=== PATIENT | female | born 1960 | race Caucasian/White ===

== ENCOUNTER → 2017-04-30 | Outpatient (CLI) | payer OTHER ==
[~2017-04-30] MED LIST: ASPCH81X PO; CLB/200 PO; CYAN100020 PO; FLUO20CA34 PO; HYDR12.55 PO; LEVO1TAB PO; MELO7.5T5 PO; PANT1TAB48 PO; PRLSR20 PO; SIMV40TA4 PO
[2017-04-30 12:50] LABS: ESTIMATED AVERAGE GLUCOSE 146 mg/dl; HA1C FLAG Normal (Normal)
[2017-04-30 13:00] LABS: ALT/SGPT 24 U/L (12-78); AST/SGOT 21 U/L (15-37); BLOOD UREA NITROGEN 9 mg/dl (7-18); BUN/CREATININE RATIO 12.1 (10-20); CALCIUM 8.3 mg/dl (8.5-10.1); CARBON DIOXIDE 32 mmol/L (21-32); CHLORIDE 110 mmol/L (98-107); CREATININE 0.74 mg/dl (0.60-1.20); GLUCOSE 134 mg/dl (70-99); SODIUM 144 mmol/L (136-145)
[2017-04-30 13:03] LABS: ALB/GLOB RATIO 0.8 (0.9-2); ALKALINE PHOSPHATASE 89 U/L (45-117); CHOLESTEROL 177 mg/dl (0-200); CHOLESTEROL/HDL RATIO 4.2; HDL CHOLESTEROL 42 mg/dl; LDL CHOLESTEROL CALCULATED 99 mg/dl; TRIGLYCERIDES 180 mg/dl (0-150); VERY LOW DENSITY LIPOPROT CALC 36 mg/dl
== END | disposition home or self-care (01) ==
LOC: C.LABBFT 08:07
PROVIDERS: ATTEND Nurse Practitioner
DX: E11.9 Type 2 diabetes mellitus without complications (principal); E53.8 Deficiency of other specified B group vitamins

== ENCOUNTER → 2017-04-30 | Outpatient (CLI) | payer OTHER ==
--- NOTE | 2017-05-01 08:25 | MAMMOGRAPHY REPORT ---
BILATERAL DIGITAL SCREENING MAMMOGRAM WITH CAD: 04/30/2017 CLINICAL HISTORY: Routine screening. Patient has no complaints. TECHNIQUE: Bilateral CC and MLO views were obtained. Current study was also evaluated with a Compute r Aided Detection (CAD) system. COMPARISON: Comparison is made to exams dated: 04/29/2016 mammogram, 04/28/2015 mammogram, 03/16/2014 ma mmogram, 11/14/2010 mammogram - [facility], 11/11/2008, and 11/13/2009 mammogram - [facility]. BREAST COMPOSITION: The tissue of both breasts is almost entirely fatty. FINDINGS: No suspicious mass, architectural distortion or cluster of microcalcifications is seen. IMPRESSION: ACR BI-RADS CATEGORY 1: NEGATIVE There is no mammographic evidence of malignancy. A 1 year screening mammogram is recommended. The pa tient will receive written notification of the results. Approximately 10% of breast cancers are not detected with mammography. A negative mammographic report should not delay biopsy if a clinically suggestive mass is present. Tuyet Mcnair M.D. ay/:04/30/2017 11:13:15 Electrocardiogram Technician: Lesvia Alejo RT(R)(M), [facility] letter sent: Normal /2 BI-RADS Code: ACR BI-RADS Category 1: Negative
== END | disposition home or self-care (01) ==
LOC: C.MAMM 08:57
PROVIDERS: ATTEND Obstetrics & Gynecology
DX: Z12.31 Encounter for screening mammogram for malignant neoplasm of breast (principal)

== ENCOUNTER → 2017-07-09 | Outpatient (CLI) | payer OTHER ==
[~2017-07-09] MED LIST changes: -CLB/200 PO; -PANT1TAB48 PO
[2017-07-09 17:31] LABS: URINE APPEARANCE CLEAR (CLEAR); URINE BILIRUBIN NEG (NEG); URINE COLOR YELLOW; URINE NITRITE NEG (NEG); URINE PH 5.5 (4.5-7.5); URINE SPECIFIC GRAVITY 1.019 (1.000-1.030); UROBILINOGEN NEG (NEG)
[2017-07-09 17:39] LABS: MANUAL MICROSCOPIC REQUIRED? NO; REVIEW REQ? NO
[2017-07-09 19:09] LABS: COMPLETE YES; EOSINOPHIL % 1.8 %; HEMATOCRIT 41.8 % (37-47); LYMPH ABS # 2.67 K/uL (1.2-3.4); LYMPHOCYTE % 27.2 %; MEAN CELL VOLUME 91.3 fL (80-100); MEAN CORPUSCULAR HEMOGLOBIN 29.7 pg (25-34); MEAN CORPUSCULAR HGB CONC 32.5 g/dl (32-36); MEAN PLATELET VOLUME 9.6 fL (7.4-10.4); NEUTROPHILS % 46.4 %; PLATELET COUNT 322 K/uL (130-400); RED BLOOD COUNT 4.58 M/uL (4.2-5.4); VARIANT LYM ABS # 2.24 K/uL; VARIANT LYMPHOCYTE % 22.8 %; WHITE BLOOD COUNT 9.82 K/uL (4.8-10.8)
== END | disposition home or self-care (01) ==
LOC: C.LAB1850 16:08
PROVIDERS: ATTEND Obstetrics & Gynecology
DX: Z01.818 Encounter for other preprocedural examination (principal)

== ENCOUNTER → 2017-07-09 | Outpatient (CLI) | payer OTHER | END | disposition home or self-care (01) | LOC: C.CPL 16:41 | PROVIDERS: ATTEND Obstetrics & Gynecology | DX: Z01.818 Encounter for other preprocedural examination (principal) ==

== ENCOUNTER 2017-07-18 05:24 | Day surgery (SDC) | payer OTHER ==
[2017-07-01 15:45] VITALS: BMI 52.0
[~2017-07-18] VITALS: Ht 160 cm; Wt 135.0 kg
[2017-07-18] MEDS ORDERED: LACTATED RINGER'S 1000ML 1,000 ML IV SCH ×2 (06:00)
[2017-07-18 06:04] VITALS: BP 181/106; PULSE 82; TEMP 36.7; O2SAT 96; Ht 160 cm; Wt 135.0 kg
[2017-07-18] MEDS ORDERED: PROPOFOL IV EMULSION 10 MG/ML 20 ML VIAL IV ONE (06:13)
[2017-07-18] MEDS ORDERED: DEXAMETHASONE SOD INJ 4 MG/ML VIAL ONE (06:13)
[2017-07-18] MEDS ORDERED: ONDANSETRON INJ 2 MG/ML 2 ML VIAL ONE (06:13)
[2017-07-18] MEDS ORDERED: FENTANYL CITRATE INJ 50 MCG/1 ML 2 ML VIAL ONE (06:13)
[2017-07-18] MEDS ORDERED: MIDAZOLAM HCL 1 MG/ML 2ML VIAL ONE (06:13)
[2017-07-18] MEDS ORDERED: LIDOCAINE HCL 2% 2 ML VIAL (20MG/ML) ONE (06:13)
[2017-07-18] MEDS ORDERED: SUCCINYLCHOLINE CHLORIDE 20 MG/ML 10 ML VIAL IV ONE (06:32)
[2017-07-18] MEDS ORDERED: ROCURONIUM BROMIDE 10 MG/ML 5 ML VIAL IV ONE (06:32)
[2017-07-18] MEDS ORDERED: FENTANYL CITRATE INJ 50 MCG/1 ML 2 ML VIAL IV PRN (07:00)
[2017-07-18] MEDS ORDERED: ATROPINE SULFATE 0.1 MG/ML 5ML SYR IV PRN (07:00)
[2017-07-18] MEDS ORDERED: EpHEDrine SULFATE INJ 50 MG/ML AMP IV PRN (07:00)
[2017-07-18] MEDS ORDERED: ONDANSETRON INJ 2 MG/ML 2 ML VIAL IV PRN ×2 (07:00→09:00)
--- NOTE | 2017-07-18 07:25 | History & Physical Bridge Note ---
H&P Re-Evaluation Bridge Note: I have examined the patient, reviewed the History & Physical and in the interval since the performance of the History & Physical I have noted the following changes of clinical significance: No changes noted
[2017-07-18] MEDS ORDERED: GLYCOPYRROLATE INJ 0.2 MG/ML VIAL ONE (08:02)
[2017-07-18] MEDS ORDERED: PHENYLEPHRINE 100MCG/ML 5ML SYR ONE (08:03)
[2017-07-18] MEDS ORDERED: EpHEDrine SULFATE 50MG/5ML SYR ONE (08:03)
[2017-07-18] MEDS ORDERED: SODIUM CHLORIDE 0.9% 1000ML 1,000 ML IV SCH (08:56)
--- NOTE | 2017-07-18 08:59 | [facility] Post Operative Brief Note ---
Immediate Operative Summary Operative Date Jul 18, 2017. Pre-Operative Diagnosis Postmenopausal bleeding Post-Operative Diagnosis Postmenopausal bleeding Procedure(s) Performed Hysteroscopy, Dilation and Currettage, removal of cervix polyp Surgeon Dr. Issa Sander Operator Surgeon(s) none Estimated Blood Loss 10 cc Findings Bilateral tubal ostia visualized, minimal amount of endometrial tissue, cervix polyp. Specimens A: Endometrial currettings Drains bladder drained prior to procedure Anesthesia general Complication(s) None Disposition Recovery Room / PACU
[2017-07-18] MEDS ORDERED: PROMETHAZINE HCL INJ 25 MG in SODIUM CHLORIDE 0.9% 50ML 50 ML IV PRN (09:00)
[2017-07-18] MEDS ORDERED: KETOROLAC TROMETHAMINE 30 MG/ML VIAL IV. PRN (09:00)
[2017-07-18] MEDS ORDERED: OXYCODONE/ACETAMINOPHEN 5-325 TAB PO PRN ×2 (09:00)
--- NOTE | 2017-07-18 09:04 | Medical Student: [facility] ---
Immediate Operative Summary Operative Date Jul 18, 2017. Pre-Operative Diagnosis postmenopausal bleeding Post-Operative Diagnosis same Procedure(s) Performed dilatation and curettage with hysteroscopy, cervical polyp removal Surgeon Dr. Issa [employer] Professional Surgeon(s) none Estimated Blood Loss 10 ml Findings cervical polyp. tubal ostia were visualized bilaterally. endometrial tissue. Specimens endometrial curettings Drains bladder drained prior to procedure Anesthesia general Complication(s) None Disposition Recovery Room / PACU
--- NOTE | 2017-07-18 09:08 | Discharge Instructions ---
Discharge Instructions Date of Service Jul 18, 2017. Visit Reason for Visit: Post-Menopausal Bleeding Discharge Discharge Diagnosis / Problem: postmenopausal bleeding, cervical polyp Discharge Goals Goal(s): Diagnostic testing, Therapeutic intervention Activity Recommendations Activity Limitations: per Instructions/Follow-up section Anesthesia . Post Anesthesia Instructions: If you have had General Anesthesia or IV Sedation: * Do not drive today. * Resume driving when surgeon permits. * Do not make important decisions or sign legal documents today. * Call surgeon for: 1. Temperature elevations greater than 101 degrees F. 2. Uncontrollable pain. 3. Excessive bleeding. 4. Persistent nausea and vomiting. 5. Medication intolerance (nausea, vomiting or rash). * For nausea and vomiting use only clear liquids such as: tea, soda, bouillon until nausea subsides, then gradually increase diet as tolerated. * If you have any concerns or questions, call your surgeon's office. If physician is unavailable and it is an emergency, call 911 or go to the nearest emergency room. . Instructions / Follow-Up Instructions / Follow-Up ACTIVITY RECOMMENDATIONS: * Avoid tampons, douching, hot tubs, pools, and intercourse until bleeding has stopped. * May shower as usual. * No strenuous activity for 24-48 hours. After 24-48 hours, you may do anything you feel like doing (driving and sports are okay). SPECIAL CARE INSTRUCTIONS: Special Diet: * Mild nausea may occur in the immediate post-operative period. * Take clear liquids such as tea, cola or bouillon until all nausea has subsided; you may then resume your normal diet. Special Care: * Light bleeding and vaginal spotting can last from a few days to 3-4 weeks. Call your doctor if bleeding becomes heavier than the heaviest part of your period. * Check your temperature twice a day for one week. If it goes above 100.4 degrees Fahrenheit (38.0 Celsius), notify your doctor. * Call your doctor's office for an appointment for 6 weeks after your surgery. FOLLOW-UP VISIT: Call your doctor's office for an appointment for 6 weeks after your surgery. Diet Recommendations Recommended Home Diet: resume previous diet Procedures Procedures Performed: Hysteroscopy, Dilation and Currettage, removal of cervix polyp Pending Studies Studies pending at discharge: yes List of pending studies: pathology Medical Emergencies . Who to Call and When: Medical Emergencies: If at any time you feel your situation is an emergency, please call 911 immediately. . Non-Emergent Contact Non-Emergency issues call your: Primary Care Provider, Verifying Specialist . . "Provider Documentation" section prepared by Lori Issa. .
[2017-07-18] MEDS ORDERED: LABETALOL HCL IV 5 MG/ML 20ML IV ONE (09:19)
[2017-07-18 09:40] VITALS: BP 138/83; PULSE 85; TEMP 36.6; O2SAT 94
--- NOTE | 2017-07-18 09:49 | OPERATIVE REPORT ---
DATE OF OPERATION: 07/18/2017 PREOPERATIVE DIAGNOSIS: Postmenopausal bleeding. POSTOPERATIVE DIAGNOSIS: Same. PROCEDURES PERFORMED: Hysteroscopy, dilation and curettage and removal of cervix polyp. SURGEON: Dr. Lori Issa. AROMATHERAPIST: None. ESTIMATED BLOOD LOSS: 10 mL. FINDINGS: Bilateral tubal ostia visualized, minimal amount of endometrial tissue and cervix polyp. SPECIMENS: Endometrial curettings. DRAINS: Bladder drained prior to procedure. ANESTHESIA: General. COMPLICATIONS: None. DISPOSITION: Stable and good to recovery room. INDICATIONS FOR PROCEDURE: The patient is a 56-year-old who had presented with postmenopausal bleeding and a cervical polyp on ultrasound. DESCRIPTION OF PROCEDURE: The patient was seen in the preoperative holding area where risks, benefits, alternatives to surgery were reviewed. She elected to proceed with the case. She had previously signed informed consent in the office under no duress. She was then taken to the operating room where general anesthesia was introduced. She was placed in the dorsal lithotomy position with feet in Yellofin stirrups. A weighted speculum was placed in the vagina. Cervix was visualized and the anterior lip was grasped with a single tooth tenaculum. The cervix was then gently dilated to admit the hysteroscope. The hysteroscope was then inserted. The cavity was viewed and the above noted findings were seen. The MyoSure scope was then inserted and the cervical polyp was removed with the MyoSure device. This was then removed and then gentle curettage was undertaken with a sharp curette. All specimens were sent to pathology for further evaluation. All instruments were removed from the vagina. Excellent hemostasis was observed. The patient was awoken from anesthesia and taken to recovery room in stable and good condition. I attest to the content of the Intraoperative Record and any orders documented therein. Any exception s are noted below.
[2017-07-18 10:10] VITALS: BP 141/83; PULSE 84; TEMP 36.6; O2SAT 94
--- NOTE | 2017-07-18 11:57 | Anesthesiology Progress Note ---
Anesthesia Post Op Note Date & Time Jul 18, 2017 at 11:57 Vital Signs Pain Intensity: 0 Vital Signs Past 12 Hours Date Time Temp Pulse Resp B/P (MAP) Pulse Ox O2 Delivery O2 Flow Rate FiO2 07/18/17 10:10 36.6 84 17 141/83 94 Room Air 07/18/17 09:40 36.6 85 17 138/83 94 Room Air 10 07/18/17 09:30 36.6 86 20 128/90 94 Room Air 07/18/17 09:20 100 17 138/94 96 Room Air 07/18/17 09:10 97 18 129/92 98 Oxymask 10 07/18/17 09:00 101 18 155/99 99 Oxymask 10 07/18/17 08:53 36.0 111 17 169/129 95 Oxymask 10 07/18/17 06:04 36.7 82 20 181/106 (131) 96 Room Air Notes Mental Status: alert / awake / arousable, participated in evaluation Pt Amnestic to Procedure: Yes Nausea / Vomiting: adequately controlled Pain: adequately controlled Airway Patency, RR, SpO2: stable & adequate BP & HR: stable & adequate Hydration State: stable & adequate Anesthetic Complications: no major complications apparent
== END 2017-07-18 10:39 | disposition home or self-care (01) ==
LOC: C.ACU 05:24
PROVIDERS: ATTEND Obstetrics & Gynecology
DX: N95.0 Postmenopausal bleeding (principal); N84.1 Polyp of cervix uteri; K21.9 Gastro-esophageal reflux disease without esophagitis; M19.90 Unspecified osteoarthritis, unspecified site; F32.9 Major depressive disorder, single episode, unspecified; E11.9 Type 2 diabetes mellitus without complications; I10 Essential (primary) hypertension; E03.9 Hypothyroidism, unspecified; Z86.010 Personal history of colon polyps; Z79.82 Long term (current) use of aspirin; E66.01 Morbid (severe) obesity due to excess calories; Z83.3 Family history of diabetes mellitus; Z82.49 Family history of ischemic heart disease and other diseases of the circulatory system

== ENCOUNTER → 2017-08-25 | Outpatient (CLI) | payer OTHER | END | disposition home or self-care (01) | LOC: C.PAPS 09:07 | PROVIDERS: ATTEND Obstetrics & Gynecology | DX: Z12.4 Encounter for screening for malignant neoplasm of cervix (principal); Z78.0 Asymptomatic menopausal state ==

== ENCOUNTER → 2017-10-28 | Outpatient (CLI) | payer OTHER ==
[2017-10-28 13:14] LABS: ESTIMATED AVERAGE GLUCOSE 131 mg/dl; HA1C FLAG Normal (Normal)
[2017-10-28 13:17] LABS: ALB/GLOB RATIO 0.7 (0.9-2); ALKALINE PHOSPHATASE 82 U/L (45-117); ALT/SGPT 21 U/L (12-78); AST/SGOT 15 U/L (15-37); BLOOD UREA NITROGEN 11 mg/dl (7-18); BUN/CREATININE RATIO 13.4 (10-20); CALCIUM 8.6 mg/dl (8.5-10.1); CARBON DIOXIDE 27 mmol/L (21-32); CHLORIDE 106 mmol/L (98-107); GLUCOSE 112 mg/dl (70-99); HDL CHOLESTEROL 42 mg/dl; POTASSIUM 3.8 mmol/L (3.5-5.1); SODIUM 138 mmol/L (136-145)
[2017-10-28 13:31] LABS: CHOLESTEROL 165 mg/dl (0-200); CHOLESTEROL/HDL RATIO 3.9; LDL CHOLESTEROL CALCULATED 86 mg/dl; TRIGLYCERIDES 183 mg/dl (0-150); VERY LOW DENSITY LIPOPROT CALC 37 mg/dl
== END | disposition home or self-care (01) ==
LOC: C.LABBFT 08:09
PROVIDERS: ATTEND Nurse Practitioner
DX: E11.9 Type 2 diabetes mellitus without complications (principal); E03.9 Hypothyroidism, unspecified; E53.8 Deficiency of other specified B group vitamins; E78.00 Pure hypercholesterolemia, unspecified

== ENCOUNTER → 2018-02-11 | Outpatient (CLI) | payer OTHER ==
[2018-02-11 13:15] LABS: BLOOD UREA NITROGEN 14 mg/dl (7-18); CALCIUM 8.9 mg/dl (8.5-10.1); CARBON DIOXIDE 28 mmol/L (21-32); CREATININE 0.86 mg/dl (0.60-1.20); GLUCOSE 123 mg/dl (70-99); POTASSIUM 3.5 mmol/L (3.5-5.1); SODIUM 139 mmol/L (136-145)
== END | disposition home or self-care (01) ==
LOC: C.LABBFT 08:03
PROVIDERS: ATTEND Internal Medicine
DX: I10 Essential (primary) hypertension (principal)

== ENCOUNTER → 2018-03-03 | Outpatient (CLI) | payer OTHER | END | disposition home or self-care (01) | LOC: C.RDSM 16:52 | PROVIDERS: ATTEND Family Medicine Sports Medicine | DX: M25.562 Pain in left knee (principal) ==

== ENCOUNTER → 2018-06-24 | Outpatient (CLI) | payer OTHER ==
--- NOTE | 2018-06-29 17:00 | POLYSOMNOGRAPH REPORT ---
CLINICAL DATA: A 57-year-old female with a BMI of 54.3, referred by Dr. Simmons and myself with a history of massive obesity, peripheral edema, nocturnal headaches, and loud snoring. On the evening of 06/25/2018, a home sleep apnea test was performed using a [employer] type 3 monitor. RECORDING RESULTS: Total recording time was 10 hours. The patient's monitoring time and estimated sleep time was 9.6 hours. RESPIRATORY DATA: Moderate sleep apnea was documented. The RADHA was 22.6. There were 10 obstructive, 3 mixed, and 1 central apneic episode. There were 216 hypopneic episodes. The longest respiratory event was 60 seconds. OXIMETRY DATA: Nocturnal hypoxemia was seen. Oxygen maira was 79%. Mean saturation was 93%. Time below 89% was 14 minutes. HEART RATE DATA: Heart rates ranged from 58-73 beats per minute. Loud snoring was recorded throughout the night. CERT OCCUPATIONAL THERAPY ASST'S COMMENTS: The patient stated that she had trouble with the cannula and that it kept falling off. The thermistor did not read correctly and appeared to be off. IMPRESSION: At least moderate sleep apnea/hypopnea with an RADHA of 22.6 with nocturnal hypoxemia. RECOMMENDATIONS: The patient may benefit from a repeat sleep study with CPAP or use of auto CPAP. SYLVIAD
== END | disposition home or self-care (01) ==
LOC: C.NEUR 09:11
PROVIDERS: ATTEND Internal Medicine Pulmonary Disease
DX: G47.30 Sleep apnea, unspecified (principal); E66.01 Morbid (severe) obesity due to excess calories; Z68.43 Body mass index [BMI] 50.0-59.9, adult; R09.02 Hypoxemia

== ENCOUNTER 2022-01-26 15:40 | Observation (INO) ==
[2022-01-26] MEDS ORDERED: SODIUM CHLORIDE 0.9% 500 ML IV STA (16:01)
[2022-01-26 16:11] LABS: Basophils # (auto) 0.01 K/uL (0-0.2); Basophils % (auto) 0.1 %; Eosinophils % (auto) 1.7 %; Hematocrit (blood only) 44.9 % (37-47); Immature Granulocytes # (auto) 0.04 K/uL (0.00-0.02); Immature Granulocytes % (auto) 0.3 %; Lymphocytes # (auto) 4.35 K/uL (1.2-3.4); Mean Corpuscular Hemoglobin 29.6 pg (25-34); Mean Corpuscular Hgb Conc 33.4 g/dL (32-36); Mean Corpuscular Volume 88.7 fL (80-100); Mean Platelet Volume 9.2 fL (7.4-10.4); Monocytes # (auto) 0.65 K/uL (0.11-0.59); Monocytes % (auto) 5.7 %; Neutrophils % (auto) 54.2 %; Platelet Count 329 K/uL (130-400); RDW Coefficient of Variation 14.4 % (11.5-14.5); RDW Standard Deviation 46.2 fL (36.4-46.3); Red Blood Count 5.06 M/uL (4.2-5.4); White Blood Count 11.45 K/uL (4.8-10.8)
--- NOTE | 2022-01-26 16:23 | Emergency Department Note ---
Impression & Plan Acute upper abdominal pain, Incarcerated umbilical hernia, Leukocytosis, Nausea ED Provider Note NAME: JOSE TATUM AGE: 61 SEX: F : 1960 ARRIVES VIA: Walk-In INFORMANT: [Patient] ED PROVIDER(S): [Adelfo Garcia MD] CHIEF COMPLAINT: Abdominal pain HISTORY OF PRESENT ILLNESS: The patient is a 61-year-old female presents to the ER with around 2 days of abdominal pain. The pain was lower and now is in the epigastric area. The pain is a 6/10. The pain is worse when she lays on her sides and when she walks but better when she lays flat on her back. There has been some nausea, no vomiting. She is urinating frequently but no burning with urination. No diarrhea. No cough or congestion or shortness of breath. She has not had fever but she noticed some chills last night. Patient has a known umbilical hernia which is being followed. She was told that she would need to lose weight before they could do the hernia repair. REVIEW OF SYSTEMS: See HPI for pertinent positives and negatives. A total of ten systems were revi ewed and were otherwise negative. PMHx/PSHx: See Below SOCIAL HISTORY: See Below. PHYSICAL EXAM: GENERAL: Patient is in no acute distress. HEENT: No acute trauma, normocephalic atraumatic, mucous membranes moist, no nasal congestion, no scleral icterus. NECK: No stridor, no adenopathy, no meningismus, trachea is midline. LUNGS: Clear to auscultation bilaterally, no wheeze, no rhonchi, breath sounds equal. HEART: Without murmurs gallops or rubs, regular rate and rhythm. ABDOMEN: Soft, nontender, bowel sounds positive, no peritonitis. Obese. The patient does have an umbilical hernia which is reducible and seems nontender. There seems to be a fullness/firmness to the right upper quadrant/epigastric area and this area does seem tender on exam, no erythema. EXTREMITIES: No cyanosis or edema, full range of motion of all the joints without pain or difficulty, no signs for acute trauma. NEUROLOGIC: Oriented x 3, no acute motor or sensory deficits, no focal weakness. SKIN: No rash, no jaundice, no diaphoresis. DIFFERENTIAL DIAGNOSIS: Appendicitis, ovarian cyst, ovarian torsion, diverticulitis, UTI, obstruction, mesenteric ischemia, aortic pathology, inflammatory bowel disease, renal colic, PUD, pancreatitis, biliary pathology, hernia, volvulus, constipation, as well as other pathologies. EMERGENCY DEPARTMENT COURSE/PROCEDURES: ECG: Indication was abdominal pain. The ECG shows a normal sinus rhythm with rate of 84. There is a potential old septal infarct. There is no ST elevation, no PVCs. The QTc is 491. Continuous Cardiac Monitoring: An order was placed for continuous cardiac monitoring. The monitor shows a rate of 99 with normal sinus rhythm. MEDICAL DECISION MAKING: There is a mild leukocytosis, this could be consistent with infection or her pain. There is a normal hemoglobin and platelet count. No significant electrolyte abnormality or kidney failure. Lactic acid is not elevated making bowel ischemia less likely. No concerning liver enzyme elevation. No evidence for pancreatitis. Covid testing returned negative. Abdominal and pelvis CT shows evidence for an incarcerated umbilical hernia. No true bowel obstruction. Chest x-ray did not show free air or pneumonia. On exam, the patient had a fullness just superior to her umbilicus. She was tender here. She was not toxic or febrile. The patient was given IV morphine for pain, IV Zofran for nausea. She received IV saline. I spoke with general surgery. The patient was seen here in the ED by our [facility] surgery team. Potential transfer to a tertiary care center was suggested. I spoke with the [facility] surgical physician operations architect, Dr. Jiménez. Dr. Jiménez did not feel the patient required emergent transfer to their facility. Patient is to be admitted to our facility and watched closely. If things seem to worsen or the patient is showing signs of instability, emergent transfer at that time can be considered. I spoke back with our surgical team. I spoke with case management, I talked to the on-call hospitalist. The patient is aware of her findings and the need for hospitalization. Past Med/Surg History Medical History Anxiety Depression History of anemia Morbid obesity with BMI of 50.0-59.9, adult Multiple pulmonary nodules determined by computed tomography of lung Obstructive sleep apnea (adult) (pediatric) Osteoarthritis Sleep apnea NO DEVICE Surgical History Cyst REMOVED FROM UTERUS OR OVARY? History of section History of colonoscopy History of dilation and curettage History of esophagogastroduodenoscopy (EGD) Family History Mother Hypertension Heart disease Father Heart disease Stroke Unknown Diabetes Uncle Diabetes Social History Smoking Status: Never smoker Second Hand Exposure: No; Hx Alcohol Use: No Hx Substance Use: No Preferred Language: Italian Communication Ability: Effective Other Sports Official Required: No Beliefs That Will Affect Care: None marital status: Current Living Situation: Spouse Other Information That Helps Us Care for You: No Feels Safe at Home: Yes Safety Concerns: Feels Safe At This Time Assistive Devices: None Allergies Allergies Allergy/AdvReac Type Severity Reaction Status Date / Time Penicillins Allergy Intermediate HIVES Verified 01/26/22 19:07 metformin AdvReac intolerable Verified 01/26/22 19:07 loose stools Home Meds Home Medications Medication Instructions Recorded Confirmed levothyroxine 150 mcg tablet 150 mcg PO DAILYBB 01/26/22 01/26/22 Previous Rx's Medication Instructions Recorded fluoxetine 20 mg tablet 20 mg PO HS #90 tab 12/21/20 simvastatin 40 mg tablet 40 mg PO PM #90 tab 12/21/20 hydrochlorothiazide 25 mg tablet 25 mg PO DAILY #30 tab 01/10/21 omeprazole 20 mg capsule,delayed 20 mg PO DAILY #30 cap 01/10/21 release glimepiride 2 mg tablet 2 mg PO DAILY #30 tab 09/20/21 meloxicam 15 mg tablet 15 mg PO QPM #30 tab 10/15/21 Results & Data (ED) Vital Signs Vital Signs - 24 hr 01/26/22 15:42 01/26/22 16:40 01/26/22 18:55 Temperature 36.6 C Temperature Source Temporal Artery Scan Pulse Rate 100 H Pulse Rate [Right Finger] 70 Pulse Rhythm [Right Finger] Regular Pulse Strength [Right Finger] Normal Respiratory Rate 16 18 Respiratory Effort / Characteristics Non-Labored Respiratory Depth Normal Respiratory Pattern Regular Blood Pressure 155/97 H Blood Pressure [Right Arm] 143/88 H Blood Pressure Mean 116 Blood Pressure Mean [Right Arm] 106 Blood Pressure Position [Right Arm] Lying Pulse Oximetry 96 95 Oxygen Delivery Method Room Air Room Air Room Air Sepsis Recent Fever Within 48 Hours No Sepsis New/Unexplained Change in Mental Status No Sepsis Action Taken by Nursing No Action Required Home Medications Current Medication List: was personally reviewed by me Laboratory Data Attestation: I reviewed the patient's lab results. Result diagrams: 01/26/22 15:50 01/26/22 15:50 Lab Results 01/26/22 01/26/22 01/26/22 Range/Units 15:50 15:50 15:50 WBC 11.45 H (4.8-10.8) K/uL RBC 5.06 (4.2-5.4) M/uL Hgb 15.0 (12.0-16.0) g/dL Hct 44.9 (37-47) % MCV 88.7 (80-100) fL MCH 29.6 (25-34) pg MCHC 33.4 (32-36) g/dL RDW Std Deviation 46.2 (36.4-46.3) fL RDW Coeff of Meeta 14.4 (11.5-14.5) % Plt Count 329 (130-400) K/uL MPV 9.2 (7.4-10.4) fL Immature Gran % (Auto) 0.3 % Neut % (Auto) 54.2 % Lymph % (Auto) 38.0 % Marshall % (Auto) 5.7 % Eos % (Auto) 1.7 % Baso % (Auto) 0.1 % Neut # (Auto) 6.20 (1.4-6.5) K/uL Lymph # (Auto) 4.35 H (1.2-3.4) K/uL Marshall # (Auto) 0.65 H (0.11-0.59) K/uL Eos # (Auto) 0.20 (0-0.5) K/uL Baso # (Auto) 0.01 (0-0.2) K/uL Immature Gran # (Auto) 0.04 H (0.00-0.02) K/uL Sodium 140 (136-145) mmol/L Potassium 3.5 (3.5-5.1) mmol/L Chloride 107 (98-107) mmol/L Carbon Dioxide 24 (21-32) mmol/L Anion Gap 9 (3-11) BUN 9 (6-23) mg/dl Creatinine 0.65 (0.6-1.2) mg/dl Est Cr Clr Drug Dosing 121.2 ml/min Est GFR ( Amer) 109.5 ml/min Est GFR (Non-Af Amer) 94.5 ml/min BUN/Creatinine Ratio 13.8 (10-20) Glucose 131 H (70-99(Fasting)) mg/dl Calcium 9.0 (8.5-10.1) mg/dl Magnesium 2.1 (1.7-2.4) mg/dl Total Bilirubin 0.6 (0.2-1.0) mg/dl AST 15 (13-39) U/L ALT 11 (7-52) U/L Alkaline Phosphatase 71 (34-104) U/L Total Protein 7.3 (6.0-8.3) gm/dl Albumin 3.6 (3.4-5.0) gm/dl Globulin 3.7 (2.5-4.0) gm/dl Albumin/Globulin Ratio 1.0 (0.9-2) Lipase 18 (11-82) U/L Administered Medications Insulin Aspart (Insulin Aspart Per Unit) 0 units SC ACHS NICHO Stop: 02/25/22 20:59 Last Admin: 01/26/22 21:42 Dose: Not Given Documented by: [id number] Cosigned by: [id number] Discontinued Medications Fluoxetine HCl (Fluoxetine Hcl 20 Mg Cap) 20 mg PO HS NICHO Stop: 02/25/22 20:59 Last Admin: 01/26/22 22:09 Dose: Not Given Documented by: [id number] Sodium Chloride (Nss) 500 mls @ 999 mls/hr IV .Q31M STA Stop: 01/26/22 16:31 Last Infusion: 01/26/22 17:27 Dose: 0 mls/hr Documented by: [id number] Admin: 01/26/22 16:42 Dose: 999 mls/hr Documented by: [id number] Lactated Ringer's (Lr) 1,000 mls @ 100 mls/hr IV .Q10H NICHO Stop: 02/25/22 19:14 Last Admin: 01/26/22 22:09 Dose: Not Given Documented by: [id number] Potassium Chloride (K Evert / Wtr) 10 meq in 100 mls @ 100 mls/hr IV Q1H NICHO; Protocol Stop: 03/19/22 22:29 Last Infusion: 01/26/22 21:43 Dose: 0 mls/hr Documented by: [id number] Admin: 01/26/22 20:43 Dose: 100 mls/hr Documented by: [id number] Ioversol (Optiray 320 100ml) 95 ml IV ONCE ONE Stop: 01/26/22 17:58 Last Admin: 01/26/22 17:57 Dose: 95 ml Documented by: [id number] Morphine Sulfate (Morphine Sulfate 10 Mg/Ml Carp/Vial) 6 mg IV NOW STA Stop: 01/26/22 18:20 Last Admin: 01/26/22 18:29 Dose: Not Given Documented by: [id number] Morphine Sulfate (Morphine Sulfate 4 Mg/Ml 1 Ml Carp\Vial) Confirm Administered Dose 4 mg .ROUTE .STK-MED ONE Stop: 01/26/22 18:25 Last Admin: 01/26/22 18:29 Dose: 4 mg Documented by: [id number] Morphine Sulfate (Morphine Sulfate 2 Mg/Ml Carp) Confirm Administered Dose 2 mg .ROUTE .STK-MED ONE Stop: 01/26/22 18:25 Last Admin: 01/26/22 18:29 Dose: 2 mg Documented by: [id number] Ondansetron HCl (Ondansetron Inj 2 Mg/Ml 2 Ml Vial) 4 mg IV NOW STA Stop: 01/26/22 18:20 Last Admin: 01/26/22 18:29 Dose: 4 mg Documented by: [id number] Simvastatin (Simvastatin 40 Mg Tab) 40 mg PO PM NICHO Stop: 02/25/22 20:59 Last Admin: 01/26/22 22:09 Dose: Not Given Documented by: [id number] Imaging Data Radiologist's Impression: Abdomen/Pelvis CT 01/26/22 16:01 CT OF THE ABDOMEN AND PELVIS WITH CONTRAST CLINICAL HISTORY: Mid abdominal pain. COMPARISON STUDY: CT of the abdomen and pelvis November 26, 2019. TECHNIQUE: Following IV administration of 95 mL of Optiray, axial images of the abdomen and pelvis were obtained from the lung bases to the proximal femurs. Images were reviewed in the axial, sagittal, and coronal planes. IV contrast was administered without complication. Automated exposure control was utilized for the study. A dose lowering technique was utilized adhering to the principles of ALARA. CT DOSE: 1679.15 mGy.cm FINDINGS: A 6 mm right lower lobe nodule on axial image 35 of [address] of November 26, 2019. No pneumatosis, free air or portal venous gas is present. There is hepatic steatosis. The spleen, adrenal glands, left kidney and pancreas are unremarkable. No biliary or pancreatic ductal dilatation is present. 5 mm right renal calculus is present. There are no ureteral calculi. No hydronephrosis is present. Note is again made of a large umbilical hernia which contains multiple distal small bowel loops, the ileocecal valve, cecum and ascending colon. This hernia was present on prior exam. There has been interval development of a small amount of fluid and associated stranding since prior exam. The appendix is normal. The small bowel proximal to the hernia sac is slightly dilated, measuring 2.8 cm in caliber. The small bowel within the hernia sac is decompressed. A low-grade partial small bowel obstruction would be difficult to exclude. Caliber change of the mesenteric vessels entering the hernia sac is noted. Fat-containing round densities within the pelvis are benign. No acute fracture or suspicious lesion within visual skeletal structures. Major vasculature is patent. IMPRESSION: Large umbilical hernia which contains distal small bowel loops, the cecum, appendix and ascending colon. Small amount of fluid within the hernia sac and associated fat stranding. These findings are nonspecific although raise the possibility of an incarcerated hernia and strangulation cannot be excluded by CT. No significant bowel wall thickening. Mild dilatation of the small bowel proximal to the hernia with decompressed small bowel loops within the hernia sac. A low-grade partial small bowel obstruction cannot be excluded. Close clinical follow-up is recommended. If indicated, Surgical consultation is recommended. Findings discussed with Dr. Garcia at time of dictation. ACT 112: Negative or not required by law. Electronically signed by: Iggy Hernandez M.D. 01/26/2022 6:22 PM Chest X-Ray 01/26/22 16:02 XR chest 1V portable CLINICAL HISTORY: Abdominal pain. COMPARISON STUDY: Chest CT September 27, 2021. FINDINGS: Mild elevation/eventration of the right hemidiaphragm is unchanged. Lungs are clear. There is no pneumothorax or pleural effusion. Cardiac size is normal. Mediastinal contours are normal. There is no evidence for pulmonary edema. IMPRESSION: No acute cardiopulmonary findings. ACT 112: Negative or not required by law. Electronically signed by: Iggy Hernandez M.D. 01/26/2022 4:34 PM Discharge Plan Visit Data Chief Complaint: Abdominal Pain Stated Complaint: ABDOM PAIN, NAUSEA ED Provider: Adelfo Garcia Discharge Problem: Acute upper abdominal pain, Incarcerated umbilical hernia, Leukocytosis, Nausea Patient Disposition: Admitted As Inpatient Condition: Fair Discharge Instructions Interventions: ED Discharge Assessment Last Done: 01/26/22 21:49
[2022-01-26 16:33] LABS: Albumin Level 3.6 gm/dl (3.4-5.0); BUN Creatinine Ratio 13.8 (10-20); Bilirubin,Total 0.6 mg/dl (0.2-1.0); Creatinine Clr Calc Pharmacy 121.2 ml/min; Est GFR (African American) 109.5 ml/min; Est GFR (Non-African American) 94.5 ml/min; Globulin 3.7 gm/dl (2.5-4.0); Potassium 3.5 mmol/L (3.5-5.1); Total Protein 7.3 gm/dl (6.0-8.3)
--- NOTE | 2022-01-26 16:36 | XRay Report ---
XR chest 1V portable CLINICAL HISTORY: Abdominal pain. COMPARISON STUDY: Chest CT September 27, 2021. FINDINGS: Mild elevation/eventration of the right hemidiaphragm is unchanged. Lungs are clear. There is no pneumothorax or pleural effusion. Cardiac size is normal. Mediastinal contours are normal. Ther e is no evidence for pulmonary edema. IMPRESSION: No acute cardiopulmonary findings. ACT 112: Negative or not required by law. Electronically signed by: Iggy Hernandez M.D. 01/26/2022 4:34 PM
[2022-01-26] MEDS ORDERED: OPTIRAY 320 100ml IV ONE (17:57)
[2022-01-26] MEDS ORDERED: MoRPHine SULFATE 10 MG/ML CARP/VIAL IV STA (18:19)
[2022-01-26] MEDS ORDERED: ONDANSETRON INJ 2 MG/ML 2 ML VIAL IV STA (18:19)
[2022-01-26] MEDS ORDERED: MoRPHine SULFATE 2 MG/ML CARP ONE (18:24)
[2022-01-26] MEDS ORDERED: MoRPHine SULFATE 4 MG/ML 1 ML CARP\\VIAL ONE (18:24)
--- NOTE | 2022-01-26 18:25 | CT Scan Report ---
CT OF THE ABDOMEN AND PELVIS WITH CONTRAST CLINICAL HISTORY: Mid abdominal pain. COMPARISON STUDY: CT of the abdomen and pelvis November 26, 2019. TECHNIQUE: Following IV administration of 95 mL of Optiray, axial images of the abdomen and pelvis we re obtained from the lung bases to the proximal femurs. Images were reviewed in the axial, sagittal, and coronal planes. IV contrast was administered without complication. Automated exposure control wa s utilized for the study. A dose lowering technique was utilized adhering to the principles of ALARA . CT DOSE: 1679.15 mGy.cm FINDINGS: A 6 mm right lower lobe nodule on axial image 35 of [address] of November. No pneumatosis, free air or portal venous gas is present. There is hepatic steatosis. The spl een, adrenal glands, left kidney and pancreas are unremarkable. No biliary or pancreatic ductal dilat ation is present. 5 mm right renal calculus is present. There are no ureteral calculi. No hydronephro sis is present. Note is again made of a large umbilical hernia which contains multiple distal small b owel loops, the ileocecal valve, cecum and ascending colon. This hernia was present on prior exam. Th ere has been interval development of a small amount of fluid and associated stranding since prior exa m. The appendix is normal. The small bowel proximal to the hernia sac is slightly dilated, measuring 2.8 cm in caliber. The small bowel within the hernia sac is decompressed. A low-grade partial small b owel obstruction would be difficult to exclude. Caliber change of the mesenteric vessels entering the hernia sac is noted. Fat-containing round densities within the pelvis are benign. No acute fracture or suspicious lesion within visual skeletal structures. Major vasculature is patent. IMPRESSION: Large umbilical hernia which contains distal small bowel loops, the cecum, appendix and ascending colon. Small amount of fluid within the hernia sac and associated fat stranding. These find ings are nonspecific although raise the possibility of an incarcerated hernia and strangulation canno t be excluded by CT. No significant bowel wall thickening. Mild dilatation of the small bowel proxima l to the hernia with decompressed small bowel loops within the hernia sac. A low-grade partial small bowel obstruction cannot be excluded. Close clinical follow-up is recommended. If indicated, Surgical consultation is recommended. Findings discussed with Dr. Garcia at time of dictation. ACT 112: Negative or not required by law. Electronically signed by: Iggy Hernandez M.D. 01/26/2022 6:22 PM
--- NOTE | 2022-01-26 18:59 | Surgery Consultation ---
Date of Consultation January 26, 2022 Assessment & Plan (1) Morbid obesity with BMI of 50.0-59.9, adult: (2) Umbilical hernia, incarcerated: Has had an incarcerated hernia containing bowel for many years (never reduces) but now with increased pain and stranding in the hernia sac suggestive of impending strangulation. She is still able to tolerate partial reduction but as soon as she moves, the hernia refills. Given her BMI, we discussed the likelihood of recurrence after repair is very high. We reviewed that if the bowel strangulates, this can be life threatening. I would recommend surgical repair - she is requesting to see if she can go to [place] as she had seen the hernia center there in the past. If unable to be transferred, she is not sure that she wants surgery yet. Option of keeping overnight for observation given, understanding that this is higher risk with potential of bowel strangulation/ sepsis. If pain worsens, would again recommend OR for repair. If improves overnight, could followup with hernia center. Await decision on transfer - discussed with Dr. Garcia History of Present Illness Reason for Consultation: abdominal pain in hernia Requesting Physician: Adelfo Garcia MD History of Present Illness 61 yr old morbidly obese woman with BMI of 51 and known umbilical hernia for many years now with increasing pain in the hernia. Has seen Dr. Ledezma who sent her to the hernia center in [place]. Seen there and advised to lose weight. She was able to lose some but than put it back on. In the last few days, has had increasing pain in the hernia, worse if she moves on her side, better if lying on her back. No nausea or vomiting. No change in bowel habits. No fevers or chills. Pain is currently mild but increases to moderate intensity with movement. Allergies Allergy/AdvReac Type Severity Reaction Status Date / Time Penicillins Allergy Intermediate HIVES Verified 10/22/21 09:46 metformin AdvReac intolerable Verified 10/22/21 09:46 loose stools Home Medications Medication Instructions Recorded Confirmed Type fluoxetine 20 mg tablet 20 mg PO HS #90 tab 12/21/20 10/22/21 Rx simvastatin 40 mg tablet 40 mg PO PM #90 tab 12/21/20 10/22/21 Rx hydrochlorothiazide 25 mg tablet 25 mg PO DAILY #30 tab 01/10/21 10/22/21 Rx omeprazole 20 mg capsule,delayed 20 mg PO DAILY #30 cap 01/10/21 10/22/21 Rx release CPAP Machine See Rx Instructions .ROUTE 01/24/21 10/22/21 Rx .COMPLEX #1 ea levothyroxine 150 mcg tablet 150 mcg PO DAILY #30 tab 04/02/21 10/22/21 Rx glimepiride 2 mg tablet 2 mg PO DAILY #30 tab 09/20/21 10/22/21 Rx meloxicam 15 mg tablet 15 mg PO QPM #30 tab 10/15/21 10/22/21 Rx sulfamethoxazole 800 1 tab PO BID 10 Days #20 tab 11/13/21 Rx mg-trimethoprim 160 mg tablet Patient History Medical History Anxiety Depression History of anemia Morbid obesity with BMI of 50.0-59.9, adult Multiple pulmonary nodules determined by computed tomography of lung Obstructive sleep apnea (adult) (pediatric) Osteoarthritis Sleep apnea NO DEVICE Surgical History Cyst REMOVED FROM UTERUS OR OVARY? 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 marital status: Current Living Situation: Family Feels Safe at Home: Yes Assistive Devices: None Physical Exam Constitutional: + morbidly obese; no acute distress Respiratory: normal respiratory effort, lungs clear to auscultation Cardiovascular: Rate/Rhythm: regular rate and regular rhythm Gastrointestinal (Abdomen): morbidly obese pannus, large (8 cm) umbilical hernia with thinning of the skin, not tense; able to partially reduce but not fully, mild tenderness while attempting to reduce Neurologic: awake; no focal motor deficits Results & Data ([facility]) Vital Signs (Past 12 Hours) Vital Signs Temp Pulse Resp BP Pulse Ox 01/26/22 15:42 36.6 C 100 H 16 155/97 H 96 Laboratory Results Abnormal lab results 01/26/22 01/26/22 Range/Units 15:50 15:50 WBC 11.45 H (4.8-10.8) K/uL Lymph # (Auto) 4.35 H (1.2-3.4) K/uL [place] # (Auto) 0.65 H (0.11-0.59) K/uL Immature Gran # (Auto) 0.04 H (0.00-0.02) K/uL Glucose 131 H (70-99(Fasting)) mg/dl Diagnostic Findings I personally reviewed the films CT OF THE ABDOMEN AND PELVIS WITH CONTRAST CLINICAL HISTORY: Mid abdominal pain. COMPARISON STUDY: CT of the abdomen and pelvis November 26, 2019. TECHNIQUE: Following IV administration of 95 mL of Optiray, axial images of the abdomen and pelvis were obtained from the lung bases to the proximal femurs. Images were reviewed in the axial, sagittal, and coronal planes. IV contrast was administered without complication. Automated exposure control was utilized for the study. A dose lowering technique was utilized adhering to the principles of ALARA. CT DOSE: 1679.15 mGy.cm FINDINGS: A 6 mm right lower lobe nodule on axial image 35 of [address] of November 26, 2019. No pneumatosis, free air or portal venous gas is present. There is hepatic steatosis. The spleen, adrenal glands, left kidney and pancreas are unremarkable. No biliary or pancreatic ductal dilatation is present. 5 mm right renal calculus is present. There are no ureteral calculi. No hydronephrosis is present. Note is again made of a large umbilical hernia which contains multiple distal small bowel loops, the ileocecal valve, cecum and ascending colon. This hernia was present on prior exam. There has been interval development of a small amount of fluid and associated stranding since prior exam. The appendix is normal. The small bowel proximal to the hernia sac is slightly dilated, measuring 2.8 cm in caliber. The small bowel within the hernia sac is decompressed. A low-grade partial small bowel obstruction would be difficult to exclude. Caliber change of the mesenteric vessels entering the hernia sac is noted. Fat-containing round densities within the pelvis are benign. No acute fracture or suspicious lesion within visual skeletal structures. Major vasculature is patent. IMPRESSION: Large umbilical hernia which contains distal small bowel loops, the cecum, appendix and ascending colon. Small amount of fluid within the hernia sac and associated fat stranding. These findings are nonspecific although raise the possibility of an incarcerated hernia and strangulation cannot be excluded by CT. No significant bowel wall thickening. Mild dilatation of the small bowel proximal to the hernia with decompressed small bowel loops within the hernia sac. A low-grade partial small bowel obstruction cannot be excluded. Close clinical follow-up is recommended. If indicated, Surgical consultation is recommended. Findings discussed with Dr. Garcia at time of dictation.
[2022-01-26] MEDS ORDERED: MoRPHine SULFATE 2 MG/ML CARP IV PRN (19:14)
[2022-01-26] MEDS ORDERED: LACTATED RINGER'S 1,000 ML IV SCH (19:15)
--- NOTE | 2022-01-26 19:41 | History & Physical Report ---
Date of Service January 26, 2022 Assessment & Plan (1) Umbilical hernia, incarcerated: Plan: -Hernia been present for many years, has never been reducible, increased pain today with stranding suggestive of impending strangulation. -Surgical consult in ED, Dr. Mendieta evaluated patient and is recommending surgery, however patient is not sure she wants to pursue this route. Current plan is to admit for observation overnight, plan for OR if pain worsens. If improves overnight, could follow-up with hernia center. -Cefepime 2g Q8h. -NPO. -LRs at 100cc/hr with K riders. -Morphine prn for pain management, zofran prn for nausea. (2) Metabolic syndrome: Plan: -BMI 53.9. -Continue simvastatin 40 mg daily. -Currently on glimepiride 2 mg daily, will discontinue this and start patient on sliding scale insulin. -Accu-Cheks achs. (3) Hypertension: Plan: -Continue HCTZ 25 mg daily. (4) Hypothyroidism: Plan: -Continue levothyroxine 150 mcg daily. (5) Acid reflux: Plan: -Continue PPI daily. Plan: -Admit to [facility]. -SCDs, Lovenox for DVT prophylaxis. -Full code. History of Present Illness Chief Complaint: Incarcerated umbilical hernia Primary Care Provider: Nura Simmons MD Patient is a 61-year-old female with a past medical history of hypertension, hypothyroidism, hyperlipidemia, diabetes type 2, GERD, and depression who presents today with increased pain of known umbilical hernia. Hernia has been present for several years, never reducible, she has previously seen Dr. Ledezma who sent her to the hernia center in [place], who advised patient would need to lose weight before they performed operation on her. Her the past few days, she has had some increased pain at the site of her hernia, it is alleviated with lying flat, exacerbated with movement. She denies fever/chills, weakness, nausea, vomiting, diarrhea, constipation, chest pain, palpitations, shortness of breath. Surgical consult was placed, Dr. Mendieta evaluated patient and is recommending surgery, however patient is not sure she wants to pursue this route. Current plan is to admit for observation overnight, plan for OR if pain worsens. If improves overnight, could follow-up with hernia center. Allergies Allergy/AdvReac Type Severity Reaction Status Date / Time Penicillins Allergy Intermediate HIVES Verified 01/26/22 19:07 metformin AdvReac intolerable Verified 01/26/22 19:07 loose stools Home Medications Medication Instructions Recorded Confirmed Type fluoxetine 20 mg tablet 20 mg PO HS #90 tab 12/21/20 01/26/22 Rx simvastatin 40 mg tablet 40 mg PO PM #90 tab 12/21/20 01/26/22 Rx hydrochlorothiazide 25 mg tablet 25 mg PO DAILY #30 tab 01/10/21 01/26/22 Rx omeprazole 20 mg capsule,delayed 20 mg PO DAILY #30 cap 01/10/21 01/26/22 Rx release glimepiride 2 mg tablet 2 mg PO DAILY #30 tab 09/20/21 01/26/22 Rx meloxicam 15 mg tablet 15 mg PO QPM #30 tab 10/15/21 01/26/22 Rx levothyroxine 150 mcg tablet 150 mcg PO DAILYBB 01/26/22 01/26/22 History Past Med/Surg History Medical History Anxiety Depression History of anemia Morbid obesity with BMI of 50.0-59.9, adult Multiple pulmonary nodules determined by computed tomography of lung Obstructive sleep apnea (adult) (pediatric) Osteoarthritis Sleep apnea NO DEVICE Surgical History Cyst REMOVED FROM UTERUS OR OVARY? 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 Beliefs That Will Affect Care: None marital status: Current Living Situation: Spouse Other Information That Helps Us Care for You: No Feels Safe at Home: Yes Safety Concerns: Feels Safe At This Time Assistive Devices: None Review of Systems Review of Systems: Constitutional: No fever, sweats or chills Eyes: No diplopia, no worsening or blurred vision ENT: normal hearing, no trouble swallowing Respiratory: No cough, sputum, dyspnea at rest or on exertion Cardiovascular: No chest pain, tightness or palpitations Abdomen: Increased pain at site of umbilical hernia, worse with movement better with rest and lying supine; no pain, nausea, vomiting, diarrhea or constipation Musculoskeletal: No joint pain, calf pain, swelling Neurologic: No weakness, numbness/tingling, or balance problems Psychiatric: No anxiety or depression Skin: No rash or itch Physical Exam Physical Exam: General: awake, alert, no apparent distress Head: Normocephalic, atraumatic ENT: PERRL, EOMI, no pharyngeal exudate, mucous membranes moist Chest: Clear to auscultation, on room air, no adventitious breath sounds Cardiac: Regular rate and rhythm, no murmur, no JVD, normal peripheral pulses, good capillary refill Abdominal: Umbilical hernia present partially reducible however refilled with movement; NABS x 4 quadrants, soft, nontender to palpation, no rebound, guarding or tenderness Extremities: Normal inspection, no peripheral edema or erythema, calfs nontender to palpation Psych: Normal mood and affect Neuro: AAO x 3, strength intact bilaterally and rated 5/5, no motor deficits, speech is clear, no peripheral sensory deficits Skin: no rash or erythema Results & Data Results & Data ([facility]) Vital Signs (Past 12 Hours) Vital Signs Temp Pulse Pulse Resp BP BP Pulse Ox 01/26/22 18:55 70 18 143/88 H 95 01/26/22 15:42 36.6 C 100 H 16 155/97 H 96 Laboratory Results Abnormal lab results 01/26/22 01/26/22 Range/Units 15:50 15:50 WBC 11.45 H (4.8-10.8) K/uL Lymph # (Auto) 4.35 H (1.2-3.4) K/uL [place] # (Auto) 0.65 H (0.11-0.59) K/uL Immature Gran # (Auto) 0.04 H (0.00-0.02) K/uL Glucose 131 H (70-99(Fasting)) mg/dl Diagnostic Findings Abdomen/Pelvis CT 01/26/22 16:01 CT OF THE ABDOMEN AND PELVIS WITH CONTRAST CLINICAL HISTORY: Mid abdominal pain. COMPARISON STUDY: CT of the abdomen and pelvis November 26, 2019. TECHNIQUE: Following IV administration of 95 mL of Optiray, axial images of the abdomen and pelvis were obtained from the lung bases to the proximal femurs. Images were reviewed in the axial, sagittal, and coronal planes. IV contrast was administered without complication. Automated exposure control was utilized for the study. A dose lowering technique was utilized adhering to the principles of ALARA. CT DOSE: 1679.15 mGy.cm FINDINGS: A 6 mm right lower lobe nodule on axial image 35 of [address] of November 26, 2019. No pneumatosis, free air or portal venous gas is present. There is hepatic steatosis. The spleen, adrenal glands, left kidney and pancreas are unremarkable. No biliary or pancreatic ductal dilatation is present. 5 mm right renal calculus is present. There are no ureteral calculi. No hydronephrosis is present. Note is again made of a large umbilical hernia which contains multiple distal small bowel loops, the ileocecal valve, cecum and ascending colon. This hernia was present on prior exam. There has been interval development of a small amount of fluid and associated stranding since prior exam. The appendix is normal. The small bowel proximal to the hernia sac is slightly dilated, measuring 2.8 cm in caliber. The small bowel within the hernia sac is decompressed. A low-grade partial small bowel obstruction would be difficult to exclude. Caliber change of the mesenteric vessels entering the hernia sac is noted. Fat-containing round densities within the pelvis are benign. No acute fracture or suspicious lesion within visual skeletal structures. Major vasculature is patent. IMPRESSION: Large umbilical hernia which contains distal small bowel loops, the cecum, appendix and ascending colon. Small amount of fluid within the hernia sac and associated fat stranding. These findings are nonspecific although raise the possibility of an incarcerated hernia and strangulation cannot be excluded by CT. No significant bowel wall thickening. Mild dilatation of the small bowel proximal to the hernia with decompressed small bowel loops within the hernia sac. A low-grade partial small bowel obstruction cannot be excluded. Close clinical follow-up is recommended. If indicated, Surgical consultation is recommended. Findings discussed with Dr. Garcia at time of dictation. ACT 112: Negative or not required by law. Electronically signed by: Iggy Hernandez M.D. 01/26/2022 6:22 PM Chest X-Ray 01/26/22 16:02 XR chest 1V portable CLINICAL HISTORY: Abdominal pain. COMPARISON STUDY: Chest CT September 27, 2021. FINDINGS: Mild elevation/eventration of the right hemidiaphragm is unchanged. Lungs are clear. There is no pneumothorax or pleural effusion. Cardiac size is normal. Mediastinal contours are normal. There is no evidence for pulmonary edema. IMPRESSION: No acute cardiopulmonary findings. ACT 112: Negative or not required by law. Electronically signed by: Iggy Hernandez M.D. 01/26/2022 4:34 PM ECG Additional Comments: Normal sinus rhythm Septal infarct , age undetermined Abnormal ECG When compared with ECG of 09-JUL-2017 16:49, Septal infarct is now Present Code Status & VTE Plan Code Status Full Code. VTE Prophylaxis Plan VTE Prophylaxis will be ordered: Yes Supervising Physician Co-Signing Physician Notes Incarcerated hernia- Has already been assessed by general surgery Dr. Mendieta, for which patient is considering surgical treatment Admit to medical surgical for observation overnight N.p.o. except meds LR at 100 mils per hour Pain medications as noted Hypertension- Hold HCTZ Hypothyroidism- Continue levothyroxine GERD- PPI daily Remaining orders and notations as noted PG Care Time/CCT Total # of Minutes Spent Total Time Spent with Patient: Total time spent is greater than 50% in coordination of care (as documented) at patient's floor/unit and/or counseling patient: Coding Level of Care Code INT OBSERVATION CARE 70M LVL 3 Diagnoses Umbilical hernia, incarcerated K42.0 Metabolic syndrome E88.81 Hypertension I10 Hypothyroidism E03.9 Acid reflux K21.9
[2022-01-26] MEDS ORDERED: GLUCOSE 40% GEL 15 GM TUBE PO PRN (19:42)
[2022-01-26] MEDS ORDERED: DEXTROSE 50% 50 ML SYRINGE IV PRN (19:42)
[2022-01-26] MEDS ORDERED: GLUCOSE 10 TABS/TUBE PO PRN (19:42)
[2022-01-26] MEDS ORDERED: CARBOHYDRATES FOR HYPOGLYCEMIA PO PRN (19:42)
[2022-01-26] MEDS ORDERED: GLUCAGON FOR INJ 1 MG VIAL SQ PRN (19:42)
[2022-01-26] MEDS ORDERED: diphenhydrAMINE 50 MG/ML VIAL IV PRN (20:07)
[2022-01-26] MEDS ORDERED: ACETAMINOPHEN 1000 MG/100 ML IV IV PRN (20:07)
[2022-01-26] MEDS: POTASSIUM CHLORIDE / WTR 10 MEQ/100 ML PLCT IV SCH ×2 (20:43→23:49)
[2022-01-26] MEDS ORDERED: SIMVASTATIN 40 MG TAB PO SCH (21:00)
[2022-01-26] MEDS ORDERED: INSULIN ASPART PER UNIT SC SCH (21:00)
[2022-01-26] MEDS ORDERED: FLUoxetine HCL 20 MG CAP PO SCH (21:00)
[2022-01-26] MEDS: CEFEPIME 2,000 MG in SYRINGE 0 ML IV SCH (23:50)
[2022-01-26] MEDS: ENOXAPARIN INJ 40 MG/0.4 ML SYR SQ SCH (23:50)
[2022-01-27] MEDS: INSULIN ASPART PER UNIT SC SCH ×5 (00:06→21:55)
[2022-01-27] MEDS: MoRPHine SULFATE 4 MG/ML 1 ML CARP\\VIAL IV PRN ×4 (03:57→22:51)
[2022-01-27] MEDS: CEFEPIME 2,000 MG in SYRINGE 0 ML IV SCH (06:02)
[2022-01-27] MEDS ORDERED: LEVOTHYROXINE SODIUM 150 MCG TABLET PO SCH (06:30)
[2022-01-27 06:53] LABS: Basophils # (auto) 0.01 K/uL (0-0.2); Basophils % (auto) 0.1 %; Eosinophils # (auto) 0.35 K/uL (0-0.5); Eosinophils % (auto) 3.9 %; Hematocrit (blood only) 42.1 % (37-47); Hemoglobin 13.8 g/dL (12.0-16.0); Immature Granulocytes # (auto) 0.02 K/uL (0.00-0.02); Immature Granulocytes % (auto) 0.2 %; Lymphocytes # (auto) 2.93 K/uL (1.2-3.4); Mean Corpuscular Hemoglobin 29.7 pg (25-34); Mean Corpuscular Hgb Conc 32.8 g/dL (32-36); Mean Corpuscular Volume 90.5 fL (80-100); Monocytes # (auto) 0.57 K/uL (0.11-0.59); Monocytes % (auto) 6.4 %; Neutrophils # (auto) 5.01 K/uL (1.4-6.5); Neutrophils % (auto) 56.4 %; Platelet Count 306 K/uL (130-400); RDW Coefficient of Variation 14.5 % (11.5-14.5); RDW Standard Deviation 48.2 fL (36.4-46.3); Red Blood Count 4.65 M/uL (4.2-5.4); White Blood Count 8.89 K/uL (4.8-10.8)
[2022-01-27 07:10] LABS: Albumin Level 3.2 gm/dl (3.4-5.0); BUN Creatinine Ratio 15.3 (10-20); Bilirubin,Total 0.6 mg/dl (0.2-1.0); Calcium 8.5 mg/dl (8.5-10.1); Creatinine Clr Calc Pharmacy 133.5 ml/min; Est GFR (African American) 113.1 ml/min; Est GFR (Non-African American) 97.5 ml/min; Globulin 3.3 gm/dl (2.5-4.0); Magnesium 2.1 mg/dl (1.7-2.4); Potassium 3.6 mmol/L (3.5-5.1); Total Protein 6.5 gm/dl (6.0-8.3)
[2022-01-27] MEDS ORDERED: PANTOprazole 40 MG TAB PO SCH (09:00)
[2022-01-27] MEDS ORDERED: hydroCHLOROthiazide 25 MG TAB PO SCH (09:00)
[2022-01-27 09:09] LABS: Appearance Urine Clear (Clear); Bilirubin Urine Negative (Negative); Blood Urine Negative (Negative); Color Urine Yellow; Glucose Urine UA Negative (Negative); Ketones Urine 2+ (Negative); Leukocyte Esterase Urine Negative (Negative); Nitrite Urine Negative (Negative); Protein Urine Negative (Negative); Specific Gravity Urine > 1.045 (1.000-1.030); Urobilinogen Urine Negative (Negative); pH Urine 5.5 (4.5-7.5)
--- NOTE | 2022-01-27 10:26 | Electrocardiogram Report ---
Test Reason : Blood Pressure : / mmHG Vent. Rate : 084 BPM Atrial Rate : 084 BPM P-R Int : 168 ms QRS Dur : 088 ms QT Int : 416 ms P-R-T Axes : 048 -05 024 degrees QTc Int : 491 ms Normal sinus rhythm Confirmed by Nura Chow ([id number]) on 01/27/2022 10:26:06 AM Referred By: REFERRED SELF Confirmed By:Jude Chow
[2022-01-27] MEDS: ONDANSETRON INJ 2 MG/ML 2 ML VIAL IV PRN (10:32)
[2022-01-27] MEDS: ENOXAPARIN INJ 40 MG/0.4 ML SYR SQ SCH ×2 (10:32→22:52)
--- NOTE | 2022-01-27 11:41 | Hospitalist Progress Note ---
Date of Service January 27, 2022 Assessment & Plan (1) Umbilical hernia, incarcerated: Plan: - Hernia been present for many years, has never been reducible, increased pain today with stranding suggestive of impending strangulation. - Surgical consult in ED, Dr. Mendieta evaluated patient and is recommending surgery, however patient was not sure she wanted to proceed with this option. Subsequently pt admitted to medical service to observe with surgery to follow. - Pt kept NPO, provided pain control, and antiemetics - Appears that empiric abx were initiated with Cefepime, no indication for abx, will d/c - Discussed case this morning with patient and general surgery; pt was agreeable to proceed with surgical correction of her hernia, however, surgery feels that patient is too high of a risk d/t her BMI and feels that she would be better served by undergoing surgery at [facility]. However, as mentioned in HPI, [facility] does not want to take in transfer (d/t her high risk) unless she gets worse or hernia becomes strangulated. My concern with waiting to transfer once the hernia is strangulated is that time is bowel and a delay in transfer may result in ischemic or infarcted bowel and I did explain this to the patient. - At this time, surgery is recommending observing another 24 hours to ensure her pain does not get any worse, advised she may eat today - Advance diet to clear liquids for lunch, I encouraged pt to get up and out of bed, sit in chair and walk around as able - Cap IVF (2) Diabetes mellitus type 2, controlled: Plan: - Glimepiride from home on hold - Initiated sliding scale coverage with accuchecks AC and HS (3) Hypertension: Plan: - Continue HCTZ 25 mg daily. (4) Hypothyroidism: Plan: - Continue levothyroxine 150 mcg daily. (5) Acid reflux: Plan: - Continue PPI daily. (6) Morbid obesity with BMI of 50.0-59.9, adult: Plan: - Certainly encourage weight loss as this substantially increases her risks associated with anesthesia administration and post surgical complications Plan: Interventions as outlined above Plan d/w Dr. Chavarria. Admission and Anticipated Discharge Date Admission Date: January 26, 2022 Subjective Patient was seen on daily rounds this morning. She is resting comfortably in bed, reports no current complaints of abdominal. Denies n/v. She is currently NPO. Was seen by general surgery this AM, felt that she was too high of a surgical risk to perform her hernia repair here and referral to [facility] was advised, but [facility] will not take in transfer unless her pain continues/worsens. Pt understands and is agreeable with this plan. Review of Systems Review of Systems: Constitutional: No fever, sweats or chills Eyes: No diplopia, no worsening or blurred vision ENT: normal hearing, no trouble swallowing Respiratory: No cough, sputum, dyspnea at rest or on exertion Cardiovascular: No chest pain, tightness or palpitations Abdomen: Increased pain at site of umbilical hernia, worse with movement better with rest and lying supine; no pain, nausea, vomiting, diarrhea or constipation Musculoskeletal: No joint pain, calf pain, swelling Neurologic: No weakness, numbness/tingling, or balance problems Psychiatric: No anxiety or depression Skin: No rash or itch Physical Exam Physical Exam: GENERAL: Morbidly obese 61 yo WF who appears older than stated age. NAD. LUNGS: Clear to auscultation bilaterally. No accessory muscle use. No W/R/R. CARDIOVASCULAR: Regular rate and rhythm. No M/G/R. No JVD. ABDOMEN: Soft, obese, minimal periumbilical tenderness to palpation. Soft tissue mass c/w umbilical hernia present, nontender to palp directly over hernia. Bowel sounds present x 4 quad. EXTREMITIES: No edema. Non-tender. Peripheral pulses +2/4. NEUROLOGIC: A&O x3. PSYCHIATRIC: Cooperative. Appropriate mood and affect. SKIN: Warm, dry, intact. No rashes or lesions. Results & Data Results & Data ([facility]) Vital Signs (Past 12 Hours) Vital Signs Temp Pulse Resp BP Pulse Ox Pulse Ox 01/27/22 08:01 36.3 C L 83 18 117/76 99 01/26/22 23:50 95 Laboratory Results 01/27/22 06:08 01/27/22 06:08 PG Care Time/CCT Total # of Minutes Spent Total Time Spent with Patient: Total time spent is greater than 50% in coordination of care (as documented) at patient's floor/unit and/or counseling patient: Coding Level of Care Code 31112 Subseq Hosp Care Lvl 2 Diagnoses Umbilical hernia, incarcerated K42.0 Hypertension I10 Hypothyroidism E03.9 Acid reflux K21.9 Diabetes mellitus type 2, controlled E11.9 Morbid obesity with BMI of 50.0-59.9, adult E66.01; Z68.43
--- NOTE | 2022-01-27 13:33 | Surgery Progress Note ---
Date of Service January 27, 2022 Assessment & Plan (1) Morbid obesity with BMI of 50.0-59.9, adult: (2) Umbilical hernia, incarcerated: Plan: Has had an incarcerated hernia containing bowel for many years (never fully reduces) but had worsening pain and CT scan showing new fat stranding yesterday. High risk for surgery here - discussed with [facility] yesterday and they would accept her if she strangulated but otherwise feel monitoring is reasonable. There is no sign of strangulation on her exam (still partially reducible, not tense). No sign of bowel ischemia on exam and her leukocytosis has resolved. I would recommend starting a diet and monitoring for additional day. If she stays stable, can be discharged with plans for outpatient followup with [place] [facility]. If worsens, would consider transfer more urgently Admission and Anticipated Discharge Date Admission Date: January 26, 2022 Subjective She had an episode of pain last night which responded to the medications. No worsening of pain in the hernia. No obstructive symptoms (nausea/ vomiting). Essentially unchanged since yesterday. Physical Exam Constitutional: + morbidly obese; no acute distress Respiratory: normal respiratory effort, lungs clear to auscultation Cardiovascular: Rate/Rhythm: regular rate and regular rhythm Gastrointestinal (Abdomen): obese, 8 cm umbilical hernia is still partially reducible, not tense, mild tenderness. No sign of infection or worsening incarceration. Neurologic: awake; no focal motor deficits Results & Data ([facility]) Vital Signs (Past 12 Hours) Vital Signs Temp Pulse Resp BP Pulse Ox 01/27/22 08:01 36.3 C L 83 18 117/76 99 Laboratory Results Abnormal lab results 01/26/22 01/26/22 01/27/22 Range/Units 15:50 15:50 00:02 WBC 11.45 H (4.8-10.8) K/uL RDW Std Deviation (36.4-46.3) fL Lymph # (Auto) 4.35 H (1.2-3.4) K/uL [place] # (Auto) 0.65 H (0.11-0.59) K/uL Immature Gran # (Auto) 0.04 H (0.00-0.02) K/uL Chloride (98-107) mmol/L Creatinine (0.6-1.2) mg/dl Glucose 131 H (70-99(Fasting)) mg/dl POC Glucose 106 H (70-99) mg/dl Albumin (3.4-5.0) gm/dl Ur Specific Poca (1.000-1.030) Urine Ketones (Negative) 01/27/22 01/27/22 01/27/22 Range/Units 05:54 06:08 06:08 WBC (4.8-10.8) K/uL RDW Std Deviation 48.2 H (36.4-46.3) fL Lymph # (Auto) (1.2-3.4) K/uL [place] # (Auto) (0.11-0.59) K/uL Immature Gran # (Auto) (0.00-0.02) K/uL Chloride 110 H (98-107) mmol/L Creatinine 0.59 L (0.6-1.2) mg/dl Glucose 122 H (70-99(Fasting)) mg/dl POC Glucose 109 H (70-99) mg/dl Albumin 3.2 L (3.4-5.0) gm/dl Ur Specific Poca (1.000-1.030) Urine Ketones (Negative) 01/27/22 01/27/22 Range/Units 08:20 11:48 WBC (4.8-10.8) K/uL RDW Std Deviation (36.4-46.3) fL Lymph # (Auto) (1.2-3.4) K/uL [place] # (Auto) (0.11-0.59) K/uL Immature Gran # (Auto) (0.00-0.02) K/uL Chloride (98-107) mmol/L Creatinine (0.6-1.2) mg/dl Glucose (70-99(Fasting)) mg/dl POC Glucose 104 H (70-99) mg/dl Albumin (3.4-5.0) gm/dl Ur Specific P[place] > 1.045 H (1.000-1.030) Urine Ketones 2+ H (Negative)
[2022-01-28 07:17] LABS: Estimated Average Glucose 126 mg/dl
[2022-01-28 08:41] LABS: Basophils # (auto) 0.01 K/uL (0-0.2); Basophils % (auto) 0.1 %; Eosinophils # (auto) 0.44 K/uL (0-0.5); Eosinophils % (auto) 5.1 %; Hematocrit (blood only) 42.7 % (37-47); Immature Granulocytes # (auto) 0.01 K/uL (0.00-0.02); Immature Granulocytes % (auto) 0.1 %; Lymphocytes # (auto) 2.57 K/uL (1.2-3.4); Lymphocytes % (auto) 29.6 %; Mean Corpuscular Hemoglobin 29.5 pg (25-34); Mean Corpuscular Hgb Conc 32.8 g/dL (32-36); Mean Corpuscular Volume 90.1 fL (80-100); Mean Platelet Volume 9.1 fL (7.4-10.4); Monocytes # (auto) 0.65 K/uL (0.11-0.59); Monocytes % (auto) 7.5 %; Neutrophils % (auto) 57.6 %; Platelet Count 266 K/uL (130-400); RDW Coefficient of Variation 14.4 % (11.5-14.5); RDW Standard Deviation 48.1 fL (36.4-46.3); Red Blood Count 4.74 M/uL (4.2-5.4); White Blood Count 8.68 K/uL (4.8-10.8)
[2022-01-28 09:07] LABS: BUN Creatinine Ratio 18.8 (10-20); Calcium 8.7 mg/dl (8.5-10.1); Creatinine Clr Calc Pharmacy 123.1 ml/min; Est GFR (African American) 110.1 ml/min; Potassium 3.4 mmol/L (3.5-5.1)
[2022-01-28] MEDS: INSULIN ASPART PER UNIT SC SCH ×3 (09:27→18:01)
[2022-01-28] MEDS: ENOXAPARIN INJ 40 MG/0.4 ML SYR SQ SCH ×2 (10:56→23:59)
--- NOTE | 2022-01-28 13:57 | Surgery Progress Note ---
Date of Service January 28, 2022 Assessment & Plan (1) Morbid obesity with BMI of 50.0-59.9, adult: (2) Umbilical hernia, incarcerated: Plan: Has had an incarcerated hernia containing bowel for many years (never fully reduces) but had worsening pain and CT scan showing new fat stranding yesterday. High risk for surgery here - discussed with [facility] yesterday and they would accept her if she strangulated but otherwise feel monitoring is reasonable. There is no sign of strangulation on her exam (still partially reducible, not tense). No sign of bowel ischemia on exam and her leukocytosis has resolved. She will need surgical repair of this hernia given persistent pain. Dr. Brown recommends transfer to [place] or [place] for definitive repair. Discussed with medical team. Dr. Brown has seen and examined pt, agrees with above. Admission and Anticipated Discharge Date Admission Date: January 26, 2022 Subjective still having pain after eating no vomiting but sometimes feels like she has to no bowel movement but passing gas No increase in abdominal pain but not really any improvement Saw Dr. Cruz in [place] about [address] Ledezma referred her there given size of hernia and needing hernia specailist. Said they would not do her surgery given her weight and increased risk. Physical Exam Constitutional: WD/WN, vitals as above + morbidly obese; no acute distress and not ill appearing Neck: normal visual inspection and trachea midline Respiratory: normal respiratory effort; no respiratory distress, no labored breathing and no retractions Gastrointestinal (Abdomen): Inspection/Auscultation: abdomen not distended Percussion/Palpation: + abdomen tender, abdomen soft and + hernia (large umb ilical hernia with tenderness to palpation); no guarding, abdomen not rigid and abdomen not firm Skin: no rashes, warm and dry Psychiatric: Orientation: alert and oriented x 3 Results & Data ([facility]) Vital Signs (Past 12 Hours) Vital Signs Temp Pulse Resp BP Pulse Ox 01/28/22 07:10 36.9 C 81 15 122/76 91 Laboratory Results 01/28/22 01/28/22 01/28/22 Range/Units 12:26 12:15 08:26 WBC (4.8-10.8) K/uL RBC (4.2-5.4) M/uL Hgb (12.0-16.0) g/dL Hct (37-47) % MCV (80-100) fL MCH (25-34) pg MCHC (32-36) g/dL RDW Std Deviation (36.4-46.3) fL RDW Coeff of Meeta (11.5-14.5) % Plt Count (130-400) K/uL MPV (7.4-10.4) fL Immature Gran % (Auto) % Neut % (Auto) % Lymph % (Auto) % [place] % (Auto) % Eos % (Auto) % Baso % (Auto) % Neut # (Auto) (1.4-6.5) K/uL Lymph # (Auto) (1.2-3.4) K/uL [place] # (Auto) (0.11-0.59) K/uL Eos # (Auto) (0-0.5) K/uL Baso # (Auto) (0-0.2) K/uL Immature Gran # (Auto) (0.00-0.02) K/uL Sodium 139 (136-145) mmol/L Potassium 3.4 L (3.5-5.1) mmol/L Chloride 106 (98-107) mmol/L Carbon Dioxide 29 (21-32) mmol/L Anion Gap 4 (3-11) BUN 12 (6-23) mg/dl Creatinine 0.64 (0.6-1.2) mg/dl Est Cr Clr Drug Dosing 123.1 ml/min Est GFR ( Amer) 110.1 ml/min Est GFR (Non-Af Amer) 95.0 ml/min BUN/Creatinine Ratio 18.8 (10-20) Glucose 104 H (70-99(Fasting)) mg/dl POC Glucose 118 H (70-99) mg/dl Estimat Average Glucose mg/dl Hemoglobin A1c (4.5-5.6) % Lactate 0.5 (0.4-2.0) mmol/L Calcium 8.7 (8.5-10.1) mg/dl 01/28/22 01/28/22 01/27/22 Range/Units 08:26 08:16 20:54 WBC 8.68 (4.8-10.8) K/uL RBC 4.74 (4.2-5.4) M/uL Hgb 14.0 (12.0-16.0) g/dL Hct 42.7 (37-47) % MCV 90.1 (80-100) fL MCH 29.5 (25-34) pg MCHC 32.8 (32-36) g/dL RDW Std Deviation 48.1 H (36.4-46.3) fL RDW Coeff of Meeta 14.4 (11.5-14.5) % Plt Count 266 (130-400) K/uL MPV 9.1 (7.4-10.4) fL Immature Gran % (Auto) 0.1 % Neut % (Auto) 57.6 % Lymph % (Auto) 29.6 % [place] % (Auto) 7.5 % Eos % (Auto) 5.1 % Baso % (Auto) 0.1 % Neut # (Auto) 5.00 (1.4-6.5) K/uL Lymph # (Auto) 2.57 (1.2-3.4) K/uL [place] # (Auto) 0.65 H (0.11-0.59) K/uL Eos # (Auto) 0.44 (0-0.5) K/uL Baso # (Auto) 0.01 (0-0.2) K/uL Immature Gran # (Auto) 0.01 (0.00-0.02) K/uL Sodium (136-145) mmol/L Potassium (3.5-5.1) mmol/L Chloride (98-107) mmol/L Carbon Dioxide (21-32) mmol/L Anion Gap (3-11) BUN (6-23) mg/dl Creatinine (0.6-1.2) mg/dl Est Cr Clr Drug Dosing ml/min Est GFR ( Amer) ml/min Est GFR (Non-Af Amer) ml/min BUN/Creatinine Ratio (10-20) Glucose (70-99(Fasting)) mg/dl POC Glucose 98 105 H (70-99) mg/dl Estimat Average Glucose mg/dl Hemoglobin A1c (4.5-5.6) % Lactate (0.4-2.0) mmol/L Calcium (8.5-10.1) mg/dl 01/27/22 01/27/22 Range/Units 16:59 06:08 WBC (4.8-10.8) K/uL RBC (4.2-5.4) M/uL Hgb (12.0-16.0) g/dL Hct (37-47) % MCV (80-100) fL MCH (25-34) pg MCHC (32-36) g/dL RDW Std Deviation (36.4-46.3) fL RDW Coeff of Meeta (11.5-14.5) % Plt Count (130-400) K/uL MPV (7.4-10.4) fL Immature Gran % (Auto) % Neut % (Auto) % Lymph % (Auto) % [place] % (Auto) % Eos % (Auto) % Baso % (Auto) % Neut # (Auto) (1.4-6.5) K/uL Lymph # (Auto) (1.2-3.4) K/uL [place] # (Auto) (0.11-0.59) K/uL Eos # (Auto) (0-0.5) K/uL Baso # (Auto) (0-0.2) K/uL Immature Gran # (Auto) (0.00-0.02) K/uL Sodium (136-145) mmol/L Potassium (3.5-5.1) mmol/L Chloride (98-107) mmol/L Carbon Dioxide (21-32) mmol/L Anion Gap (3-11) BUN (6-23) mg/dl Creatinine (0.6-1.2) mg/dl Est Cr Clr Drug Dosing ml/min Est GFR ( Amer) ml/min Est GFR (Non-Af Amer) ml/min BUN/Creatinine Ratio (10-20) Glucose (70-99(Fasting)) mg/dl POC Glucose 99 (70-99) mg/dl Estimat Average Glucose 126 mg/dl Hemoglobin A1c 6.0 H (4.5-5.6) % Lactate (0.4-2.0) mmol/L Calcium (8.5-10.1) mg/dl
[2022-01-28] MEDS ORDERED: POTASSIUM CHLORIDE CRTAB 20 MEQ TABCR PO STA (15:14)
--- NOTE | 2022-01-28 15:20 | Hospitalist Progress Note ---
Date of Service January 28, 2022 Assessment & Plan (1) Umbilical hernia, incarcerated: Plan: - Hernia been present for many years, has never been reducible, increased pain today with stranding suggestive of impending strangulation. - Surgical consult in ED, Dr. Mendieta evaluated patient and is recommending surgery, however patient was not sure she wanted to proceed with this option. Subsequently pt admitted to medical service to observe with surgery to follow. - Pt kept NPO, provided pain control, and antiemetics - Appears that empiric abx were initiated with Cefepime, no indication for abx, will d/c - Discussed case this morning with patient and general surgery; pt was agreeable to proceed with surgical correction of her hernia, however, surgery feels that patient is too high of a risk d/t her BMI and feels that she would be better served by undergoing surgery at [facility]. However, as mentioned in HPI, [facility] does not want to take in transfer (d/t her high risk) unless she gets worse or hernia becomes strangulated. My concern with waiting to transfer once the hernia is strangulated is that time is bowel and a delay in transfer may result in ischemic or infarcted bowel and I did explain this to the patient. - At this time, surgery is recommending observing another 24 hours to ensure her pain does not get any worse, advised she may eat today - Advance diet to clear liquids for lunch, I encouraged pt to get up and out of bed, sit in chair and walk around as able - IVF capped yesterday - This morning, pt attempted regular diet and had worsening pain - I have called [facility] [place], spoke with ER physician (?unsure why surgery didn't get on the line) who felt that obtaining a lactate and repeat CT scan would aid in decision making process - Lactate WNL - CT A/P w/ IV and oral contrast is pending--to be done around 1700 this elias armendariz Will call [facility] back once results are available to discuss with them. (2) Diabetes mellitus type 2, controlled: Plan: - Glimepiride from home on hold - Initiated sliding scale coverage with accuchecks AC and HS (3) Hypertension: Plan: - Continue HCTZ 25 mg daily. (4) Hypothyroidism: Plan: - Continue levothyroxine 150 mcg daily. (5) Acid reflux: Plan: - Continue PPI daily. Plan: Repeat CT A/P pending. Will contact [facility] to discuss transfer again once results are available for review. As noted above, lactate today is within normal limits. I have returned patient back to n.p.o. status, she is allowed sips in order to take medications and ice chips. Potassium supplementation ordered for K+ of 3.4. Plan d/w Dr. Chavarria. Admission and Anticipated Discharge Date Admission Date: January 26, 2022 Subjective Pt seen on daily rounds. Her diet was advanced to clear liquids yesterday which she seemed to be tolerating relatively well. Diet advanced to regular this morning and she started eating a few bites of toast and had worsening abdominal pain. She denies fever, chills, vomiting but has had a couple occasions where she felt like she had to. She continues to pass flatus. No BM since admission. Surgery is recommending transfer to [facility] for surgical intervention as she is felt to be too high risk for surgery here. Apparently has seen Dr. Cruz in [place] about 2 years ago. Review of Systems Review of Systems: Constitutional: No fever, sweats or chills Eyes: No diplopia, no worsening or blurred vision ENT: normal hearing, no trouble swallowing Respiratory: No cough, sputum, dyspnea at rest or on exertion Cardiovascular: No chest pain, tightness or palpitations Abdomen: Increased pain at site of umbilical hernia, worse with movement better with rest and lying supine; no pain, nausea, vomiting, diarrhea or constipation Musculoskeletal: No joint pain, calf pain, swelling Neurologic: No weakness, numbness/tingling, or balance problems Psychiatric: No anxiety or depression Skin: No rash or itch Physical Exam Physical Exam: GENERAL: Morbidly obese 61 yo WF who appears older than stated age. NAD. LUNGS: Clear to auscultation bilaterally. No accessory muscle use. No W/R/R. CARDIOVASCULAR: Regular rate and rhythm. No M/G/R. No JVD. ABDOMEN: Soft, obese, minimal periumbilical tenderness to palpation. Soft umbilical mass c/w hernia present, nontender to palp directly over hernia. Bowel sounds present x 4 quad. EXTREMITIES: No edema. Non-tender. Peripheral pulses +2/4. NEUROLOGIC: A&O x3. PSYCHIATRIC: Cooperative. Appropriate mood and affect. SKIN: Warm, dry, intact. No rashes or lesions. Results & Data Results & Data ([facility]) Vital Signs (Past 12 Hours) Vital Signs Temp Pulse Pulse Resp BP Pulse Ox 01/28/22 14:41 37 C 85 16 126/73 94 01/28/22 07:10 36.9 C 81 15 122/76 91 Laboratory Results 01/28/22 08:26 01/28/22 08:26 PG Care Time/CCT Total # of Minutes Spent Total Time Spent with Patient: Total time spent is greater than 50% in coordination of care (as documented) at patient's floor/unit and/or counseling patient: Coding Level of Care Code 76891 Subseq Hosp Care Lvl 2 Diagnoses Umbilical hernia, incarcerated K42.0 Hypertension I10 Hypothyroidism E03.9 Acid reflux K21.9 Diabetes mellitus type 2, controlled E11.9
[2022-01-28] MEDS ORDERED: OPTIRAY 320 100ml IV ONE (17:38)
--- NOTE | 2022-01-28 18:19 | CT Scan Report ---
CT abd pelvis oral and IV con CLINICAL HISTORY: incarcerated umbilical hernia worsening pain TECHNIQUE: Helical axial images of the abdomen and pelvis were obtained and displayed. Automated dose lowering techniques and/or adjustment according to patient size were utilized for this exam. This e xam was performed with intravenous contrast. COMPARISON: None available at the time of this dictation. FINDINGS: Lower chest: 5 mm pulmonary nodule is seen in the right lower lobe. Liver: Unremarkable. No focal lesions are seen. Gallbladder and biliary tree: No calcified gallstones. Normal caliber wall. No intra- or extrahepatic biliary ductal dilation. Pancreas: The pancreas appears to terminate just distal to the body. Spleen: Splenule is incidentally noted. Adrenals: Unremarkable. Kidneys and ureters: Right nonobstructive stone is seen. Bladder: Limited evaluation due to underdistention. Reproductive organs: Unremarkable. Bowel: Multiple loops of bowel are seen in an umbilical hernia. There is no evidence of obstruction. No significant bowel wall thickening is seen within the hernia. Lymph nodes Retroperitoneal: Unremarkable. Mesenteric: Unremarkable. Pelvic: Unremarkable. Peritoneum: Multiple foci of fat with a soft tissue rim are seen compatible with old omental hernias. Vessels: Unremarkable. Abdominal wall: A large umbilical hernia is seen with a neck measuring 77 mm. This contains multiple loops of bowel and some fluid. Bones: Degenerative changes in the visualized spine. IMPRESSION: Multiple loops of bowel are seen within the hernia along with some fluid. No evidence of bowel wall t hickening. Of note, strangulation cannot be entirely excluded by CT. ACT 112: Negative or not required by law. Electronically signed by: Rip Daley M.D. 01/28/2022 6:17 PM
[2022-01-28] MEDS: LACTATED RINGER'S 1,000 ML IV SCH (18:42)
[2022-01-28] MEDS ORDERED: Nursing to Pharmacy Communication SCH (18:45)
[2022-01-28] MEDS: ONDANSETRON INJ 2 MG/ML 2 ML VIAL IV PRN (20:57)
[2022-01-28] MEDS: MoRPHine SULFATE 4 MG/ML 1 ML CARP\\VIAL IV PRN (20:58)
[2022-01-29] MEDS: INSULIN ASPART PER UNIT SC SCH ×4 (00:01→17:16)
[2022-01-29] MEDS: MoRPHine SULFATE 4 MG/ML 1 ML CARP\\VIAL IV PRN (03:23)
[2022-01-29] MEDS: LACTATED RINGER'S 1,000 ML IV SCH ×2 (03:26→13:23)
[2022-01-29] MEDS ORDERED: LEVOTHYROXINE SODIUM 150 MCG TABLET PO SCH (06:30)
[2022-01-29 07:55] LABS: Basophils # (auto) 0.01 K/uL (0-0.2); Basophils % (auto) 0.1 %; Eosinophils # (auto) 0.22 K/uL (0-0.5); Eosinophils % (auto) 2.3 %; Hematocrit (blood only) 41.9 % (37-47); Hemoglobin 13.7 g/dL (12.0-16.0); Immature Granulocytes # (auto) 0.02 K/uL (0.00-0.02); Immature Granulocytes % (auto) 0.2 %; Lymphocytes # (auto) 3.34 K/uL (1.2-3.4); Lymphocytes % (auto) 34.3 %; Mean Corpuscular Hemoglobin 29.5 pg (25-34); Mean Corpuscular Hgb Conc 32.7 g/dL (32-36); Mean Corpuscular Volume 90.1 fL (80-100); Mean Platelet Volume 9.2 fL (7.4-10.4); Monocytes % (auto) 6.2 %; Neutrophils # (auto) 5.55 K/uL (1.4-6.5); Neutrophils % (auto) 56.9 %; Platelet Count 300 K/uL (130-400); RDW Coefficient of Variation 14.5 % (11.5-14.5); RDW Standard Deviation 47.4 fL (36.4-46.3); Red Blood Count 4.65 M/uL (4.2-5.4); White Blood Count 9.74 K/uL (4.8-10.8)
[2022-01-29 08:14] LABS: BUN Creatinine Ratio 20.3 (10-20); Calcium 8.5 mg/dl (8.5-10.1); Creatinine Clr Calc Pharmacy 133.5 ml/min; Est GFR (African American) 113.1 ml/min; Est GFR (Non-African American) 97.5 ml/min; Potassium 3.9 mmol/L (3.5-5.1)
[2022-01-29] MEDS: ENOXAPARIN INJ 40 MG/0.4 ML SYR SQ SCH (11:19)
--- NOTE | 2022-01-29 14:47 | Discharge Summary ---
Date of Service January 29, 2022 Admission HPI Per Admitting Provider Patient is a 61-year-old female with a past medical history of hypertension, hypothyroidism, hyperlipidemia, diabetes type 2, GERD, and depression who presents today with increased pain of known umbilical hernia. Hernia has been present for several years, never reducible, she has previously seen Dr. Ledezma who sent her to the hernia center in [place], who advised patient would need to lose weight before they performed operation on her. Her the past few days, she has had some increased pain at the site of her hernia, it is alleviated with lying flat, exacerbated with movement. She denies fever/chills, weakness, nausea, vomiting, diarrhea, constipation, chest pain, palpitations, shortness of breath. Surgical consult was placed, Dr. Mendieta evaluated patient and is recommending surgery, however patient is not sure she wants to pursue this route. Current plan is to admit for observation overnight, plan for OR if pain worsens. If improves overnight, could follow-up with hernia center. Principal Diagnosis Incarcerated umbilical hernia w/o ability to exclude strangulation Discharge Exam GENERAL: Morbidly obese 61 yo WF who appears older than stated age. NAD. LUNGS: Clear to auscultation bilaterally. No accessory muscle use. No W/R/R. CARDIOVASCULAR: Regular rate and rhythm. No M/G/R. No JVD. ABDOMEN: Soft, obese, periumbilical tenderness to palpation. Soft umbilical mass c/w hernia present, nontender to palp directly over hernia. Bowel sounds present x 4 quad. EXTREMITIES: No edema. Non-tender. Peripheral pulses +2/4. NEUROLOGIC: A&O x3. PSYCHIATRIC: Cooperative. Appropriate mood and affect. SKIN: Warm, dry, intact. No rashes or lesions. Discharge Data Allergies Allergy/AdvReac Type Severity Reaction Status Date / Time Penicillins Allergy Intermediate HIVES Verified 01/26/22 19:07 metformin AdvReac intolerable Verified 01/26/22 19:07 loose stools Consultations 01/26/22 18:19 Consult General Surgery Stat 01/26/22 19:23 ED Decision to Admit Stat Ordered Studies Abdomen/Pelvis CT 01/26/22 16:01 CT OF THE ABDOMEN AND PELVIS WITH CONTRAST CLINICAL HISTORY: Mid abdominal pain. COMPARISON STUDY: CT of the abdomen and pelvis November 26, 2019. TECHNIQUE: Following IV administration of 95 mL of Optiray, axial images of the abdomen and pelvis were obtained from the lung bases to the proximal femurs. Images were reviewed in the axial, sagittal, and coronal planes. IV contrast was administered without complication. Automated exposure control was utilized for the study. A dose lowering technique was utilized adhering to the principles of ALARA. CT DOSE: 1679.15 mGy.cm FINDINGS: A 6 mm right lower lobe nodule on axial image 35 of [address] of November 26, 2019. No pneumatosis, free air or portal venous gas is present. There is hepatic steatosis. The spleen, adrenal glands, left kidney and pancreas are unremarkable. No biliary or pancreatic ductal dilatation is present. 5 mm right renal calculus is present. There are no ureteral calculi. No hydronephrosis is present. Note is again made of a large umbilical hernia which contains multiple distal small bowel loops, the ileocecal valve, cecum and ascending colon. This hernia was present on prior exam. There has been interval development of a small amount of fluid and associated stranding since prior exam. The appendix is normal. The small bowel proximal to the hernia sac is slightly dilated, measuring 2.8 cm in caliber. The small bowel within the hernia sac is decompressed. A low-grade partial small bowel obstruction would be difficult to exclude. Caliber change of the mesenteric vessels entering the hernia sac is noted. Fat-containing round densities within the pelvis are benign. No acute fracture or suspicious lesion within visual skeletal structures. Major vasculature is patent. IMPRESSION: Large umbilical hernia which contains distal small bowel loops, the cecum, appendix and ascending colon. Small amount of fluid within the hernia sac and associated fat stranding. These findings are nonspecific although raise the possibility of an incarcerated hernia and strangulation cannot be excluded by CT. No significant bowel wall thickening. Mild dilatation of the small bowel proximal to the hernia with decompressed small bowel loops within the hernia sac. A low-grade partial small bowel obstruction cannot be excluded. Close clini ramakrishna follow-up is recommended. If indicated, Surgical consultation is recommended. Findings discussed with Dr. Garcia at time of dictation. ACT 112: Negative or not required by law. Electronically signed by: Iggy Hernandez M.D. 01/26/2022 6:22 PM Chest X-Ray 01/26/22 16:02 XR chest 1V portable CLINICAL HISTORY: Abdominal pain. COMPARISON STUDY: Chest CT September 27, 2021. FINDINGS: Mild elevation/eventration of the right hemidiaphragm is unchanged. Lungs are clear. There is no pneumothorax or pleural effusion. Cardiac size is normal. Mediastinal contours are normal. There is no evidence for pulmonary edema. IMPRESSION: No acute cardiopulmonary findings. ACT 112: Negative or not required by law. Electronically signed by: Iggy Hernandez M.D. 01/26/2022 4:34 PM Abdomen/Pelvis CT 01/28/22 12:02 CT abd pelvis oral and IV con CLINICAL HISTORY: incarcerated umbilical hernia worsening pain TECHNIQUE: Helical axial images of the abdomen and pelvis were obtained and displayed. Automated dose lowering techniques and/or adjustment according to patient size were utilized for this exam. This exam was performed with intravenous contrast. COMPARISON: None available at the time of this dictation. FINDINGS: Lower chest: 5 mm pulmonary nodule is seen in the right lower lobe. Liver: Unremarkable. No focal lesions are seen. Gallbladder and biliary tree: No calcified gallstones. Normal caliber wall. No intra- or extrahepatic biliary ductal dilation. Pancreas: The pancreas appears to terminate just distal to the body. Spleen: Splenule is incidentally noted. Adrenals: Unremarkable. Kidneys and ureters: Right nonobstructive stone is seen. Bladder: Limited evaluation due to underdistention. Reproductive organs: Unremarkable. Bowel: Multiple loops of bowel are seen in an umbilical hernia. There is no evidence of obstruction. No significant bowel wall thickening is seen within the hernia. Lymph nodes Retroperitoneal: Unremarkable. Mesenteric: Unremarkable. Pelvic: Unremarkable. Peritoneum: Multiple foci of fat with a soft tissue rim are seen compatible with old omental hernias. Vessels: Unremarkable. Abdominal wall: A large umbilical hernia is seen with a neck measuring 77 mm. This contains multiple loops of bowel and some fluid. Bones: Degenerative changes in the visualized spine. IMPRESSION: Multiple loops of bowel are seen within the hernia along with some fluid. No evidence of bowel wall thickening. Of note, strangulation cannot be entirely excluded by CT. ACT 112: Negative or not required by law. Electronically signed by: Rip Daley M.D. 01/28/2022 6:17 PM 01/29/22 07:22 01/29/22 07:22 Hospital Course (1) Umbilical hernia, incarcerated: - Hernia been present for many years, has never been reducible, increased pain today with stranding suggestive of impending strangulation. - Surgical consult in ED, Dr. Mendieta evaluated patient and is recommending surgery, however patient was not sure she wanted to proceed with this option. Subsequently pt admitted to medical service to observe with surgery to follow. - Pt kept NPO, provided pain control, and antiemetics - Appears that empiric abx were initiated with Cefepime, no indication for abx and subsequently were discontinued - Discussed case this morning with patient and general surgery; pt was agreeable to proceed with surgical correction of her hernia, however, surgery feels that patient is too high of a risk d/t her BMI and feels that she would be better served by undergoing surgery at [facility]. However, as mentioned in HPI, [facility] does not want to take in transfer (d/t her high risk) unless she gets worse or hernia becomes strangulated. My concern with waiting to transfer once the hernia is strangulated is that time is bowel and a delay in transfer may result in ischemic or infarcted bowel and I did explain this to the patient. - As of 01/27, surgery recommended observing another 24 hours to ensure her pain does not get any worse, advised she may eat today and could be sent home if tolerated oral intake - Diet advanced to clear liquids for lunch on 01/27, I encouraged pt to get up and out of bed, sit in chair and walk around as able - Yesterday (01/28) AM, pt attempted regular diet and had worsening pain and was subsequently moved back to NPO status; general surgery here continued to recommend transfer. - I have called [facility], spoke with an ER physician (?unsure why surgery didn't get on the line) who felt that obtaining a lactate and repeat CT scan would aid in decision making process - Lactate yesterday and this morning drawn at request of [facility] both WNL - CT A/P w/ IV and oral contrast performed yesterday, results as outlined above, yet again could not exclude strangulation - Contacted [facility] yesterday around [address] Cruz who patient saw previously (~2 years ago), explained that patient has failed dietary advancement and repeat CT is unchanged, furthermore pt continues to have episodes of severe abdominal pain associated w/ nausea and retching. Pt was accepted in transfer pending bed availability. - Spoke with bed farm management professor around 1230 today, noted that patient does have a bed they are just waiting for the patient currently occupying it to vacate (as this pt has been discharged). Once they do, [facility] will call with bed assignment and transportation can be arranged. - Paperwork has been filled out and signed. Pt is stable for ground transport to [facility]. (2) Diabetes mellitus type 2, controlled: - Glimepiride from home on hold - Initiated sliding scale coverage with accuchecks AC and HS (3) Hypertension: - Continue HCTZ 25 mg daily. (4) Hypothyroidism: - Continue levothyroxine 150 mcg daily. (5) Acid reflux: - Continue PPI daily. At this time, pt is medically and hemodynamically stable for discharge from [facility] in order to transfer to [facility]. She is stable for ground transport. Pt has been updated on plan of care and is in agreement. Above plan of care has been d/w Dr. Chavarria who has also seen this patient today and is in agreement with the aforementioned. Total Time Total Time Spent Total Time Spent (In Minutes): >30 minutes Discharge Plan Discharge Items Patient Disposition: Transfer Acute Care Hospital Reason For Visit: INCARCERATED HERNIA Discharge Diagnosis: incarcerated umbilical hernia Condition on Discharge: Fair Activity: As commented below Activity Comment: out of bed as tolerated Non-emergency contact: Primary Care Provider and Surgeon Call non-emergency contact if: you have any medication questions and your symptoms worsen Follow-up/Referrals: Nura Simmons MD [Primary Care Provider] - Diet: Nothing by Mouth Addtl Attending Provider Instructions: Due to surgery being too high of a risk to perform here at [facility], you are being transferred to a tertiary hospital--[facility]--in order to see a general surgeon who specializes in hernia repairs. Pending Studies at Discharge: No Stand-Alone Forms: My [facility] Skilled Items Patient informed of condition?: Yes DNR: No Discharge Level of Care: Other Communicable Disease: No Discharge Prognosis: Stable Lines: Peripheral IV Urinary Catheter: No Medications and DC Order Prescriptions: Continued fluoxetine 20 mg tablet 20 mg PO HS Qty: 90 RF: 3 simvastatin 40 mg tablet 40 mg PO PM Qty: 90 RF: 3 omeprazole 20 mg capsule,delayed release(DR/EC) 20 mg PO DAILY Qty: 30 RF: 11 hydrochlorothiazide 25 mg tablet 25 mg PO DAILY Qty: 30 RF: 11 glimepiride 2 mg tablet 2 mg PO DAILY Qty: 30 RF: 11 meloxicam 15 mg tablet 15 mg PO QPM Qty: 30 RF: 11 levothyroxine 150 mcg tablet 150 mcg PO DAILYBB RF: 0 Discharge Orders: Discharge Order (Routine); Ordered 01/29/22 Ordered By: Neha Pineda/Other Patient Handouts: Hypoglycemia (Low Blood Sugar), Managing Type 2 Diabetes, Diabetes: Meal Planning Admission Data Admit Date/Time: 01/26/22 21:27 Attending Provider: Bharath Chavarria Admit Provider: Annita Mendieta Primary Care Provider: Nura Simmons Other Providers: Annita Mendieta ; Kartik Hodges Other Interventions: Discharge Summary Assessment (RN) Last Done: 01/29/22 14:44 Supervising Physician Co-Signing Physician Notes Patient is a 61-year-old female with an incarcerated umbilical hernia without strangulation as noted above. Patient has been accepted for [facility] transfer. Agree with medical transfer as documented above, and have discussed the case with MORGAN Escalante. Patient is seen at bedside prior to transfer, has mild diffuse abdominal tenderness overlying her hernia without severe pain, no guarding, no rigidity, no rebound tenderness. No questions or concerns, other than what time her transfers at. Coding Level of Care Code D/C DAY MANAGEMENT >30 MINS Diagnoses Umbilical hernia, incarcerated K42.0 Diabetes mellitus type 2, controlled E11.9 Hypertension I10 Hypothyroidism E03.9 Acid reflux K21.9
--- NOTE | 2022-01-29 15:13 | Surgery Progress Note ---
Date of Service January 29, 2022 Patient seen around 10:00 this am during rounds Assessment & Plan (1) Morbid obesity with BMI of 50.0-59.9, adult: (2) Umbilical hernia, incarcerated: Plan: 61 year old morbidly obese female with BMI of 53 with longstanding history of umbilical hernia containing bowel for years. Recent increase in abdominal pain specifically with oral intake. CT scan upon admission showed some stranding which was new compared to baseline however no evidence of bowel obstruction. She failed advancement of diet. Awaiting possible transfer to [place]. Repeat CT scan of abdomen and pelvis showed no evidence of bowel obstruction or signs of strangulation. Lactic acid normal. Normal wbc. Plan: Although there are no signs of obstruction or strangulation of hernia, given her increasing pain with any oral intake she needs definitive repair of this hernia. She needs hernia specialist given size of hernia and her BMI. Discussed options of close outpatient follow-up with [facility] hernia specialist if able to advance diet. She will likely need to loose weight preoperatively if done electively. Plan to attempt to advance diet and she how she tolerates. Dr. Brown was present during my examination and agrees with above. addendum: Discussed plan with hospitalist admitting service at 10:30 am who stated [place] accepted patient in transfer and waiting for bed. States she was vomit ing last evening after CT scan and has failed diet advancement now twice. She likely needs repair of hernia now instead of waiting to schedule as outpatient/elective procedure. Agree with the need for transfer. Admission and Anticipated Discharge Date Admission Date: January 26, 2022 Subjective states she is not having as much pain today so far but has not had anything to eat or drink since the CT scan last evening. Had nausea last evening after oral contrast with dry heaves. No persistent vomiting per patient. She failed advancement of diet twice already. Passing gas but no bowel movement Physical Exam Constitutional: WD/WN, vitals as above + morbidly obese; no acute distress and not ill appearing Respiratory: normal respiratory effort; no respiratory distress and no labored breathing Gastrointestinal (Abdomen): Inspection/Auscultation: + visible herniation; abdomen not distended Percussion/Palpation: + abdomen tender (at umbilicus and to right of umbilicus) and + hernia (large umbilical hernia containing bowel, not reducible on exam) Skin: no rashes, warm and dry Psychiatric: Orientation: alert and oriented x 3 Results & Data ([facility]) Vital Signs (Past 12 Hours) Vital Signs Temp Pulse Resp BP Pulse Ox 01/29/22 15:01 36.7 C 86 18 140/88 90 01/29/22 07:46 36.8 C 86 16 104/70 92 Laboratory Results 01/29/22 01/29/22 01/29/22 Range/Units 11:56 07:26 07:22 WBC (4.8-10.8) K/uL RBC (4.2-5.4) M/uL Hgb (12.0-16.0) g/dL Hct (37-47) % MCV (80-100) fL MCH (25-34) pg MCHC (32-36) g/dL RDW Std Deviation (36.4-46.3) fL RDW Coeff of Meeta (11.5-14.5) % Plt Count (130-400) K/uL MPV (7.4-10.4) fL Immature Gran % (Auto) % Neut % (Auto) % Lymph % (Auto) % Beadle % (Auto) % Eos % (Auto) % Baso % (Auto) % Neut # (Auto) (1.4-6.5) K/uL Lymph # (Auto) (1.2-3.4) K/uL Beadle # (Auto) (0.11-0.59) K/uL Eos # (Auto) (0-0.5) K/uL Baso # (Auto) (0-0.2) K/uL Immature Gran # (Auto) (0.00-0.02) K/uL Sodium 138 (136-145) mmol/L Potassium 3.9 (3.5-5.1) mmol/L Chloride 107 (98-107) mmol/L Carbon Dioxide 25 (21-32) mmol/L Anion Gap 6 (3-11) BUN 12 (6-23) mg/dl Creatinine 0.59 L (0.6-1.2) mg/dl Est Cr Clr Drug Dosing 133.5 ml/min Est GFR ( Amer) 113.1 ml/min Est GFR (Non-Af Amer) 97.5 ml/min BUN/Creatinine Ratio 20.3 H (10-20) Glucose 97 (70-99(Fasting)) mg/dl POC Glucose 87 (70-99) mg/dl Lactate 0.5 (0.4-2.0) mmol/L Calcium 8.5 (8.5-10.1) mg/dl Hepatitis C Ab Screen (Neg) 01/29/22 01/29/22 01/28/22 Range/Units 07:22 06:16 23:57 WBC 9.74 (4.8-10.8) K/uL RBC 4.65 (4.2-5.4) M/uL Hgb 13.7 (12.0-16.0) g/dL Hct 41.9 (37-47) % MCV 90.1 (80-100) fL MCH 29.5 (25-34) pg MCHC 32.7 (32-36) g/dL RDW Std Deviation 47.4 H (36.4-46.3) fL RDW Coeff of Meeta 14.5 (11.5-14.5) % Plt Count 300 (130-400) K/uL MPV 9.2 (7.4-10.4) fL Immature Gran % (Auto) 0.2 % Neut % (Auto) 56.9 % Lymph % (Auto) 34.3 % Beadle % (Auto) 6.2 % Eos % (Auto) 2.3 % Baso % (Auto) 0.1 % Neut # (Auto) 5.55 (1.4-6.5) K/uL Lymph # (Auto) 3.34 (1.2-3.4) K/uL Beadle # (Auto) 0.60 H (0.11-0.59) K/uL Eos # (Auto) 0.22 (0-0.5) K/uL Baso # (Auto) 0.01 (0-0.2) K/uL Immature Gran # (Auto) 0.02 (0.00-0.02) K/uL Sodium (136-145) mmol/L Potassium (3.5-5.1) mmol/L Chloride (98-107) mmol/L Carbon Dioxide (21-32) mmol/L Anion Gap (3-11) BUN (6-23) mg/dl Creatinine (0.6-1.2) mg/dl Est Cr Clr Drug Dosing ml/min Est GFR ( Amer) ml/min Est GFR (Non-Af Amer) ml/min BUN/Creatinine Ratio (10-20) Glucose (70-99(Fasting)) mg/dl POC Glucose 95 117 H (70-99) mg/dl Lactate (0.4-2.0) mmol/L Calcium (8.5-10.1) mg/dl Hepatitis C Ab Screen (Neg) 01/28/22 01/28/22 01/28/22 Range/Units 20:48 18:18 17:13 WBC (4.8-10.8) K/uL RBC (4.2-5.4) M/uL Hgb (12.0-16.0) g/dL Hct (37-47) % MCV (80-100) fL MCH (25-34) pg MCHC (32-36) g/dL RDW Std Deviation (36.4-46.3) fL RDW Coeff of Meeta (11.5-14.5) % Plt Count (130-400) K/uL MPV (7.4-10.4) fL Immature Gran % (Auto) % Neut % (Auto) % Lymph % (Auto) % Beadle % (Auto) % Eos % (Auto) % Baso % (Auto) % Neut # (Auto) (1.4-6.5) K/uL Lymph # (Auto) (1.2-3.4) K/uL Beadle # (Auto) (0.11-0.59) K/uL Eos # (Auto) (0-0.5) K/uL Baso # (Auto) (0-0.2) K/uL Immature Gran # (Auto) (0.00-0.02) K/uL Sodium (136-145) mmol/L Potassium (3.5-5.1) mmol/L Chloride (98-107) mmol/L Carbon Dioxide (21-32) mmol/L Anion Gap (3-11) BUN (6-23) mg/dl Creatinine (0.6-1.2) mg/dl Est Cr Clr Drug Dosing ml/min Est GFR ( Amer) ml/min Est GFR (Non-Af Amer) ml/min BUN/Creatinine Ratio (10-20) Glucose (70-99(Fasting)) mg/dl POC Glucose 98 111 H (70-99) mg/dl Lactate 0.8 (0.4-2.0) mmol/L Calcium (8.5-10.1) mg/dl Hepatitis C Ab Screen (Neg) 01/27/22 Range/Units 06:08 WBC (4.8-10.8) K/uL RBC (4.2-5.4) M/uL Hgb (12.0-16.0) g/dL Hct (37-47) % MCV (80-100) fL MCH (25-34) pg MCHC (32-36) g/dL RDW Std Deviation (36.4-46.3) fL RDW Coeff of Meeta (11.5-14.5) % Plt Count (130-400) K/uL MPV (7.4-10.4) fL Immature Gran % (Auto) % Neut % (Auto) % Lymph % (Auto) % Beadle % (Auto) % Eos % (Auto) % Baso % (Auto) % Neut # (Auto) (1.4-6.5) K/uL Lymph # (Auto) (1.2-3.4) K/uL Beadle # (Auto) (0.11-0.59) K/uL Eos # (Auto) (0-0.5) K/uL Baso # (Auto) (0-0.2) K/uL Immature Gran # (Auto) (0.00-0.02) K/uL Sodium (136-145) mmol/L Potassium (3.5-5.1) mmol/L Chloride (98-107) mmol/L Carbon Dioxide (21-32) mmol/L Anion Gap (3-11) BUN (6-23) mg/dl Creatinine (0.6-1.2) mg/dl Est Cr Clr Drug Dosing ml/min Est GFR ( Amer) ml/min Est GFR (Non-Af Amer) ml/min BUN/Creatinine Ratio (10-20) Glucose (70-99(Fasting)) mg/dl POC Glucose (70-99) mg/dl Lactate (0.4-2.0) mmol/L Calcium (8.5-10.1) mg/dl Hepatitis C Ab Screen Pos A (Neg) Diagnostic Findings CT abd pelvis oral and IV con CLINICAL HISTORY: incarcerated umbilical hernia worsening pain TECHNIQUE: Helical axial images of the abdomen and pelvis were obtained and displayed. Automated dose lowering techniques and/or adjustment according to patient size were utilized for this exam. This exam was performed with intravenous contrast. COMPARISON: None available at the time of this dictation. FINDINGS: Lower chest: 5 mm pulmonary nodule is seen in the right lower lobe. Liver: Unremarkable. No focal lesions are seen. Gallbladder and biliary tree: No calcified gallstones. Normal caliber wall. No intra- or extrahepatic biliary ductal dilation. Pancreas: The pancreas appears to terminate just distal to the body. Spleen: Splenule is incidentally noted. Adrenals: Unremarkable. Kidneys and ureters: Right nonobstructive stone is seen. Bladder: Limited evaluation due to underdistention. Reproductive organs: Unremarkable. Bowel: Multiple loops of bowel are seen in an umbilical hernia. There is no evidence of obstruction. No significant bowel wall thickening is seen within the hernia. Lymph nodes Retroperitoneal: Unremarkable. Mesenteric: Unremarkable. Pelvic: Unremarkable. Peritoneum: Multiple foci of fat with a soft tissue rim are seen compatible with old omental hernias. Vessels: Unremarkable. Abdominal wall: A large umbilical hernia is seen with a neck measuring 77 mm. This contains multiple loops of bowel and some fluid. Bones: Degenerative changes in the visualized spine. IMPRESSION: Multiple loops of bowel are seen within the hernia along with some fluid. No evidence of bowel wall thickening. Of note, strangulation cannot be entirely excluded by CT.
== END 2022-01-29 19:49 | disposition short-term general hospital (02) ==
LOC: 3N 15:40 → ED 15:40 → SUATTDRO 21:27 → 3N 21:49